=== PATIENT | male | born 1960 | race Caucasian/White ===

== ENCOUNTER 2017-07-22 13:24 | Inpatient (IN) | payer OTHER ==
[2017-07-22 13:28] VITALS: BMI 43.0
--- NOTE | 2017-07-22 13:28 | PDOC ---
History of Present Illness - General Chief Complaint: Pain Stated Complaint: LEG PAIN Time Seen by Provider: 07/22/17 13:26 - History of Present Illness Initial Comments: 07/22/17 13:31 Mr. Miller is a 56 yo male with a significant past medical history of hemorrhagic stroke in 2010 who presents to the emergency department by EMS complaining of pain in his Left hip/leg since Tuesday. He reports that he tripped over his cane on Tuesday while standing and believes that he fell on his left side. He was quickly helped up he reports but woke up with pain Tuesday. He says the pain is worse when he moves and at rest he feels no pain. The patient denies chest pain, shortness of breath, headache and dizziness. Denies fever, chills, nausea, vomit, diarrhea and constipation. Denies dysuria, frequency, urgency and hematuria. Allergies: NKDA Past surgical history: Craniotomy after stroke previously mentioned Past History - Past Medical History Allergies/Adverse Reactions: Allergies Allergy/AdvReac Type Severity Reaction Status Date / Time No Known Allergies Allergy Verified 07/22/17 13:28 Home Medications: Ambulatory Orders Amlodipine Besylate 10 mg PO DAILY 07/22/17 Furosemide [Lasix] 20 mg PO DAILY 07/22/17 Losartan Potassium 100 mg PO DAILY 07/22/17 Review of Systems - Review of Systems Comments:: 07/22/17 13:31 GENERAL/CONSTITUTIONAL: No fever or chills. No weakness. HEAD, EYES, EARS, NOSE AND THROAT: No change in vision. No ear pain or discharge. No sore throat. CARDIOVASCULAR: No chest pain or shortness of breath RESPIRATORY: No cough, wheezing, or hemoptysis. GASTROINTESTINAL: No nausea, vomiting, diarrhea or constipation. GENITOURINARY: No dysuria, frequency, or change in urination. MUSCULOSKELETAL: +Pain to top of left leg reported. SKIN: No rash NEUROLOGIC: No headache, vertigo, loss of consciousness, or change in strength/ sensation. ENDOCRINE: No increased thirst. No abnormal weight change HEMATOLOGIC/LYMPHATIC: No anemia, easy bleeding, or history of blood clots. ALLERGIC/IMMUNOLOGIC: No hives or skin allergy. *Physical Exam - Physical Exam Comments: 07/22/17 13:31 GENERAL: Awake, alert, and fully oriented, in no acute distress HEAD: No signs of trauma, normocephalic, atraumatic EYES: PERRLA, EOMI, sclera anicteric, conjunctiva clear ENT: Auricles normal inspection, hearing grossly normal, nares patent, oropharynx clear without exudates. Moist mucosa NECK: Normal ROM, supple, no lymphadenopathy, JVD, or masses LUNGS: No distress, speaks full sentences, clear to auscultation bilaterally HEART: Regular rate and rhythm, normal S1 and S2, no murmurs, rubs or gallops, peripheral pulses normal and equal bilaterally. ABDOMEN: Soft, nontender, normoactive bowel sounds. No guarding, no rebound. No masses EXTREMITIES: +Patient localizes pain to intertrochanteric fold on LLE; pain only with deep palpation or movement of leg. Normal inspection, Normal range of motion, no edema. No clubbing or cyanosis. Strength and sensation intact to reported baseline following stroke. NEUROLOGICAL: Cranial nerves II through XII grossly intact. Normal speech, normal gait, no focal sensorimotor deficits SKIN: Warm, Dry, normal turgor, no rashes or lesions noted. 07/22/17 15:18 ED Treatment Course - LABORATORY CBC & Chemistry Diagram: 07/22/17 16:00 Medical Decision Making - Medical Decision Making 07/22/17 15:17 Patient reports with LLE pain after fall, no change in strength or sensation from baseline of decreased strength/sensation on left side of body. Hip/Pelvis Left ordered for evaluation. 07/22/17 17:05 Hip/Pelvis unable to rule-out acute non-displaced fracture. Patient unable to ambulate at usual baseline, Head and Pelvis CT ordered for further evaluation. 07/22/17 19:02 Patient signed out to Dr. Emery for further evaluation.
--- NOTE | 2017-07-22 14:01 | PDOC ---
Attending Attestation - HPI HPI: 07/22/17 15:40 The patient is a 56 year old male with a significant PMH of hemorrhagic stroke ( 2010) who presents to the emergency department by EMS with 4 days of left leg/ hip pain s/p fall. Patient normally walks with a cane and tripped over it. Patient has been bed bound since the fall, reports being able to stand but unable to walk. - Physicial Exam PE: 07/22/17 15:57 Vitals: Triage Vital signs reviewed General Appearance: no acute distress, well nourished well developed, Extremities: (+) Left hip tender to palpation. Full range of motion to all extremities, no cyanosis, clubbing, or edema Neuro: AOX3; Cranial Nerves 2-12 grossly c intact, Strength intact to all extremities, Sensation intact to all extremities. - Medical Decision Making 07/22/17 16:03 Plan: Morphine for pain control. EKG Lab: CMP, BMP, Type & Screen Radiology: Pelvic CT. Chest, Hip & Pelvis X-rays. <Felice Gamino - Last Filed: 07/22/17 16:18> - Resident Resident Name: Floyd Wan - ED Attending Attestation I have performed the following: I have examined & evaluated the patient, The case was reviewed & discussed with the resident, I agree w/resident's findings & plan, Exceptions are as noted - Medical Decision Making 07/22/17 17:11 Mechanical fall on Tuesday. Status post pain medication patient still unable to ambulate on left leg. Will observe for pain medication as well as CT head CT pelvis to rule out nondisplaced fracture and further management of pain and inability to walk <Abiel Patel - Last Filed: 07/22/17 17:11>
[2017-07-22] MEDS ORDERED: morphine CARPU-JECT 4 MG/1 ML DISP.SYRIN IVPUSH ONE (15:36)
[2017-07-22] MEDS ORDERED: morphine CARPU-JECT 2 MG/1 ML DISP.SYRIN ONE (15:58)
[2017-07-22 18:32] LABS: ALBUMIN 3.8 g/dl (3.4-5.0); ALK PHOS 79 U/L (45-117); ANION GAP 7 (8-16); BILIRUBIN,TOTAL 0.9 mg/dL (0.2-1.0); CALCIUM 9.1 mg/dL (8.5-10.1); CO2 30 mmol/L (21-32); CREATININE 1.5 mg/dL (0.7-1.3); GLUCOSE,RANDOM 94 mg/dL (74-106); SGOT/AST 28 U/L (15-37); SGPT/ALT 26 U/L (12-78); TOT PROT 7.4 g/dl (6.4-8.2)
[2017-07-22 20:27] LABS: BASOPHIL 0.9 % (0-2.0); EOSINOPHIL 0.4 % (0-4.5); MCH 31.8 pg (25.7-33.7); MCHC 33.9 g/dl (32.0-35.9); MEAN PLT VOLUME 9.4 fl (7.5-11.1); PLATELET COUNT 224 K/MM3 (134-434); RDW 14.4 % (11.9-15.9); WHITE BLOOD COUNT 7.6 K/mm3 (4.0-10.0)
[2017-07-22 20:29] LABS: INR 1.58 (0.82-1.09); PROTHROMBIN TIME (PATIENT) 17.8 SEC (9.98-11.88)
[2017-07-22] MEDS ORDERED: ONDANSETRON 4 MG/2 ML VIAL IVPUSH PRN (21:51)
[2017-07-22] MEDS ORDERED: SODIUM CHLORIDE 1,000 ML IV STA (21:51)
[2017-07-22] MEDS: SODIUM CHLORIDE 1,000 ML IV SCH (23:45)
[2017-07-23] MEDS ORDERED: ENOXAPARIN SQ ONE (03:15)
[2017-07-23] MEDS ORDERED: ENOXAPARIN NA (PORCINE) 100 MG/1 ML DISP.SYRIN SQ ONE ×2 (03:15→15:45)
[2017-07-23] MEDS ORDERED: ENOXAPARIN NA (PORCINE) 30 MG/0.3 ML DISP.SYRIN SQ ONE (03:15)
[2017-07-23] MEDS: SODIUM CHLORIDE 1,000 ML IV SCH ×2 (06:02→22:33)
[2017-07-23 07:34] LABS: BASOPHIL 0.3 % (0-2.0); MCH 31.3 pg (25.7-33.7); MCHC 33.5 g/dl (32.0-35.9); MEAN CELL VOLUME 93.5 fl (80-96); MEAN PLT VOLUME 9.2 fl (7.5-11.1); PLATELET COUNT 182 K/MM3 (134-434); RDW 14.2 % (11.9-15.9); WHITE BLOOD COUNT 6.4 K/mm3 (4.0-10.0)
[2017-07-23 08:08] LABS: ANION GAP 9 (8-16); CALCIUM 8.2 mg/dL (8.5-10.1); CO2 25 mmol/L (21-32); CREATININE 1.1 mg/dL (0.7-1.3); GLUCOSE,RANDOM 78 mg/dL (74-106)
[2017-07-23] MEDS ORDERED: PATIENT'S OWN MEDICATION (NON-FORMULARY) (Losartan Potassium [Losartan Potassium] 100 MG) PO SCH (10:00)
[2017-07-23] MEDS ORDERED: ENOXAPARIN NA (PORCINE) 40 MG/0.4 ML DISP.SYRIN SQ SCH (10:00)
[2017-07-23] MEDS: LOSARTAN POTASSIUM 50 MG TABLET (FP) PO SCH (10:13)
[2017-07-23] MEDS: FUROSEMIDE 20 MG TABLET (FP) PO SCH (10:13)
[2017-07-23] MEDS: amLODIPine BESYLATE 10 MG TABLET (FP) PO SCH (10:14)
[2017-07-23] MEDS: HYDROmorphone HCL CARPU-JECT 1 MG/1 ML DISP.SYRIN IVPB PRN ×3 (10:14→22:33)
--- NOTE | 2017-07-23 12:26 | HP ---
Admitting History and Physical - Primary Care Physician PCP: Juan Kwon - Admission Chief Complaint: Left groin Pain History of Present Illness: 56 yrs old man H/O Morbid Obesity BMI > 40, HTN, Hemorrhagic stroke 2011 s/p Craniotomy, preoperative Left calf DVT s/p IVC filter at [facility], on Coumadin last Coumadin was subtherapeutic 3 wks ago cont on same dose, yesterday present with c/o Left groin and Hip pain after sustaining a mechanical fall on Tuesday, patient walks with a cane on Tuesday tripped on cane while walking landed on Left Hip , next day morning developed worsening pain around Left groin and Hip joint, coolant walk much stayed at home but pain persisted , yesterday felt worsening pain came to Ed for evaluation, patient denies any head, neck, or intra abdominal trauma, no c/o chest pain, SOB palpitation, no H/O LOC or syncope symptoms, patient came to Ed for evaluation, extensive imaging including, CT head, CT Left Hip, CXR and , Neck X ray reported normal, patient was having difficulty in walking so admitted for pain control, LE Doppler Showed Left CFV thrombosis INR sub therapeutic so bridged with Lovenox, today no c/o chest pain, abd or SOB, still c/o Left Hip Pain. - Smoking History Smoking history: Former smoker Have you smoked in the past 12 months: No - Alcohol/Substance Use Hx Alcohol Use: No Home Medications - Allergies Allergies/Adverse Reactions: Allergies Allergy/AdvReac Type Severity Reaction Status Date / Time No Known Allergies Allergy Verified 07/22/17 13:28 - Home Medications Home Medications: Ambulatory Orders Amlodipine Besylate 10 mg PO DAILY 07/22/17 Furosemide [Lasix] 20 mg PO DAILY 07/22/17 Losartan Potassium 100 mg PO DAILY 07/22/17 Metoprolol Tartrate 100 mg PO BID 07/22/17 Pravastatin Sodium 40 mg PO HS 07/22/17 Warfarin Na [Coumadin] 4 mg PO 07/22/17 Warfarin Sodium 2 mg PO 07/22/17 Family Disease History - Family Disease History Family Disease History: Heart Disease: Father, Mother Review of Systems - Review of Systems Constitutional: reports: No Symptoms. denies: Diaphoresis, Fever, Lethargy HENT: denies: No Symptoms Neck: reports: No Symptoms Cardiovascular: denies: Chest Pain, Edema, Palpitations Respiratory: denies: Cough, SOB Gastrointestinal: reports: No Symptoms. denies: Abdominal Pain, Bloating Musculoskeletal: reports: No Symptoms (Left Groin Pian), Other. denies: Back Pain Neurological: reports: No Symptoms Endocrine: reports: Excessive Sweating, Flushing Hematology/Lymphatic: denies: Easily Bruised Psychiatric: reports: No Symptoms Pain Intensity: 6 Physical Examination Vital Signs: Vital Signs Temperature 98.5 F 07/23/17 09:36 Pulse Rate 75 07/23/17 09:36 Respiratory Rate 20 07/23/17 09:36 Blood Pressure 116/71 07/23/17 09:36 O2 Sat by Pulse Oximetry (%) 98 07/23/17 09:00 Middle aged pleasant man not in acute Distress HEENT: mm moist no anemia, PERRLA NECK: No JVD No Bruit CHEST: CTA B/L CVS: S1S2 R ABD; obese non tender Bs + EXT: Left Trace edema, tenderness Left Knee and groin and Left Hip movement are pain full OTM CONSULTANT: Aox3 at base line Let upper extremity weakness +++, minimal Left LE weakness Labs: CBC, BMP 07/23/17 06:00 07/23/17 06:00 Imaging - Results Chest X-ray: Report Reviewed (Normal) Cat Scan: Image Reviewed (Head; No acute changes) Ultrasound: Report Reviewed (Le Doppler shows Left CFV DVT) EKG: Report Reviewed (NSR ano acute St T changes) Problem List - Problems (1) Acute deep vein thrombosis (DVT) of left lower extremity Assessment/Plan: Patient is a known case of Left calf DVT in 2010 after craniotomy s/p IVC filter on Life long AC present with Left hi trauma and pain with decrease mobility, imaging shows no fracture , LE Doppler shows Left CFV thrombosis INR subtherapeutic will bridge with Lovenox, considering proximal DVT F/U abd ultrasound to evaluate IVC for possible thrombus, will consider vascular consult , Hold coumadin. Pending abd ultrasound and vascular consult input. Code(s): I82.402 - ACUTE EMBOLISM AND THOMBOS UNSP DEEP VEINS OF L LOW EXTREM Qualifiers: Affected thrombotic vein of extremity: femoral Qualified Code(s): I82.412 - Acute embolism and thrombosis of left femoral vein; I82.412 - Acute embolism and thrombosis of left femoral vein; I82.412 - Acute embolism and thrombosis of left femoral vein; I82.412 - Acute embolism and thrombosis of left femoral vein (2) HTN (hypertension) Assessment/Plan: Well controlled cont Home Medications. Code(s): I10 - ESSENTIAL (PRIMARY) HYPERTENSION (3) CKD stage G3b/A3, GFR 30-44 and albumin creatinine ratio >300 mg/g Assessment/Plan: No base line available cont IV Hyfdration F/UBMP in am Code(s): N18.3 - CHRONIC KIDNEY DISEASE, STAGE 3 (MODERATE) (4) Hypercholesteremia Assessment/Plan: Cont Statin Code(s): E78.00 - PURE HYPERCHOLESTEROLEMIA, UNSPECIFIED (5) Left hip pain Assessment/Plan: After trauma, pelvic CT shows no fracture will cont pain control, PT evaluation if pain persists will consider ortho consult. Code(s): M25.552 - PAIN IN LEFT HIP
--- NOTE | 2017-07-23 13:06 | EKG ---
Test Reason : Blood Pressure : / mmHG Vent. Rate : 057 BPM Atrial Rate : 057 BPM P-R Int : 178 ms QRS Dur : 092 ms QT Int : 452 ms P-R-T Axes : 018 029 027 degrees QTc Int : 439 ms SINUS BRADYCARDIA WITH SINUS ARRHYTHMIA OTHERWISE NORMAL ECG WHEN COMPARED WITH ECG OF 03-FEB-2011 00:38, VENT. RATE HAS DECREASED BY 44 BPM T WAVE AMPLITUDE HAS DECREASED IN ANTERIOR LEADS QT HAS SHORTENED CLINICAL CORRELATION IS RECOMMENDED Confirmed by RIGOBERTO FITZGERALD MD ([id number]) on 07/23/2017 1:06:10 PM Referred By: Confirmed By:RIGOBERTO FITZGERALD MD
[2017-07-23] MEDS: WARFARIN NA 2 MG TABLET (UD) PO SCH (19:01)
[2017-07-23] MEDS ORDERED: ENOXAPARIN NA (PORCINE) 120 MG/0.8 ML DISP.SYRIN SQ SCH (22:00)
[2017-07-24 08:43] LABS: INR 1.53 (0.82-1.09); PROTHROMBIN TIME (PATIENT) 17.3 SEC (9.98-11.88)
[2017-07-24] MEDS ORDERED: ENOXAPARIN NA (PORCINE) 30 MG/0.3 ML DISP.SYRIN SQ ONE ×2 (10:54→22:19)
[2017-07-24] MEDS ORDERED: ENOXAPARIN NA (PORCINE) 100 MG/1 ML DISP.SYRIN SQ ONE ×2 (10:54→22:19)
[2017-07-24] MEDS: LOSARTAN POTASSIUM 50 MG TABLET (FP) PO SCH (10:57)
[2017-07-24] MEDS: ENOXAPARIN SQ SCH ×2 (10:57→22:56)
[2017-07-24] MEDS: amLODIPine BESYLATE 10 MG TABLET (FP) PO SCH (10:58)
[2017-07-24] MEDS: FUROSEMIDE 20 MG TABLET (FP) PO SCH (10:58)
[2017-07-24] MEDS: HYDROmorphone HCL CARPU-JECT 1 MG/1 ML DISP.SYRIN IVPB PRN (11:01)
[2017-07-24] MEDS: SODIUM CHLORIDE 1,000 ML IV SCH (11:06)
--- NOTE | 2017-07-24 17:52 | PN ---
Progress Note, Physician Chief Complaint: Still c/o Left LE Pain History of Present Illness: 56 yrs old man wiyth H/o HTN, Obesity, dyslipedemia, H/O hemmorhagic stroke s/p Craniotomy and DCT s/p IVC filter present with Left groin pain after a mechanical fall LE Doppler shows Left CFV DVT , CT Pelvis -ve for fracture. - Current Medication List Current Medications: Active Medications Amlodipine Besylate (Norvasc -) 10 mg PO DAILY [facility] Last Admin: 07/24/17 10:58 Dose: 10 mg Enoxaparin Sodium 100 mg/ (Enoxaparin Sodium 25 mg) 125 mg SQ BID [facility] Last Admin: 07/24/17 10:57 Dose: 125 mg Furosemide (Lasix -) 20 mg PO DAILY [facility] Last Admin: 07/24/17 10:58 Dose: 20 mg Hydromorphone HCl (Dilaudid Injection -) 1 mg IVPB Q6H PRN PRN Reason: PAIN Last Admin: 07/24/17 11:01 Dose: 1 mg Sodium Chloride (Normal Saline -) 1,000 mls @ 75 mls/hr IV ASDIR [facility] Last Admin: 07/24/17 11:06 Dose: 75 mls/hr Losartan Potassium (Cozaar -) 100 mg PO DAILY [facility] Last Admin: 07/24/17 10:57 Dose: 100 mg Ondansetron HCl (Zofran Injection) 4 mg IVPUSH Q6H PRN PRN Reason: NAUSEA Warfarin Sodium (Coumadin -) 4 mg PO DAILY@1800 [facility] Last Admin: 07/23/17 19:01 Dose: 4 mg - Objective Vital Signs: Vital Signs Temperature 98.2 F 07/24/17 17:28 Pulse Rate 74 07/24/17 17:28 Respiratory Rate 20 07/24/17 17:28 Blood Pressure 134/82 07/24/17 17:28 O2 Sat by Pulse Oximetry (%) 96 07/24/17 09:00 Middle aged pleasant man not in acute Distress HEENT: mm moist no anemia, PERRLA NECK: No JVD No Bruit CHEST: CTA B/L CVS: S1S2 R ABD; obese non tender Bs + EXT: Left Trace edema, tenderness Left Knee and groin and Left Hip movement are pain full FASHION STYLIST: Aox3 at base line Let upper extremity weakness +++, minimal Left LE weakness Labs: CBC, BMP 07/23/17 06:00 07/23/17 06:00 INR, PTT INR 1.53 (0.82-1.09) H 07/24/17 06:00 - ....Imaging Ultrasound: Report Reviewed (NO IVC Clot) Problem List - Problems (1) Acute deep vein thrombosis (DVT) of left lower extremity Assessment/Plan: Patient is a known case of Left calf DVT in 2010 after craniotomy s/p IVC filter on Life long AC present with Left hi trauma and pain with decrease mobility, imaging shows no fracture , LE Doppler shows Left CFV thrombosis INR subtherapeutic will bridge with Lovenox, considering proximal DVT F/U abd ultrasound to evaluate IVC for possible thrombus, will consider vascular consult , Hold coumadin. Pending abd ultrasound show no IVC clot and vascular consult input. Code(s): I82.402 - ACUTE EMBOLISM AND THOMBOS UNSP DEEP VEINS OF L LOW EXTREM Qualifiers: Affected thrombotic vein of extremity: femoral Qualified Code(s): I82.412 - Acute embolism and thrombosis of left femoral vein; I82.412 - Acute embolism and thrombosis of left femoral vein; I82.412 - Acute embolism and thrombosis of left femoral vein; I82.412 - Acute embolism and thrombosis of left femoral vein (2) HTN (hypertension) Assessment/Plan: Well controlled cont Home Medications. Code(s): I10 - ESSENTIAL (PRIMARY) HYPERTENSION (3) CKD stage G3b/A3, GFR 30-44 and albumin creatinine ratio >300 mg/g Assessment/Plan: No base line available cont IV Hyfdration F/UBMP in am Code(s): N18.3 - CHRONIC KIDNEY DISEASE, STAGE 3 (MODERATE) (4) Hypercholesteremia Assessment/Plan: Cont Statin Code(s): E78.00 - PURE HYPERCHOLESTEROLEMIA, UNSPECIFIED (5) Left hip pain Assessment/Plan: After trauma, pelvic CT shows no fracture will cont pain control, PT evaluation if pain persists will consider ortho consult. Code(s): M25.552 - PAIN IN LEFT HIP (6) Morbid obesity with BMI of 40.0-44.9, adult Assessment/Plan: Nutrition consult as out patient Code(s): E66.01 - MORBID (SEVERE) OBESITY DUE TO EXCESS CALORIES Z68.41 - BODY MASS INDEX (BMI) 40.0-44.9, ADULT
[2017-07-24] MEDS: WARFARIN NA 2 MG TABLET (UD) PO SCH (17:58)
[2017-07-25] MEDS: SODIUM CHLORIDE 1,000 ML IV SCH (00:05)
[2017-07-25 07:10] LABS: BASOPHIL 0.4 % (0-2.0); EOSINOPHIL 1.4 % (0-4.5); MCH 31.2 pg (25.7-33.7); MCHC 33.9 g/dl (32.0-35.9); MEAN PLT VOLUME 8.8 fl (7.5-11.1); NEUTROPHILS 65.3 % (42.8-82.8); PLATELET COUNT 177 K/MM3 (134-434); RDW 14.2 % (11.9-15.9); WHITE BLOOD COUNT 6.1 K/mm3 (4.0-10.0)
[2017-07-25 07:25] LABS: INR 1.65 (0.82-1.09); PROTHROMBIN TIME (PATIENT) 18.7 SEC (9.98-11.88)
[2017-07-25] MEDS ORDERED: ENOXAPARIN NA (PORCINE) 100 MG/1 ML DISP.SYRIN SQ ONE ×2 (10:09→20:36)
[2017-07-25] MEDS ORDERED: ENOXAPARIN NA (PORCINE) 30 MG/0.3 ML DISP.SYRIN SQ ONE ×2 (10:09→20:36)
[2017-07-25] MEDS: LOSARTAN POTASSIUM 50 MG TABLET (FP) PO SCH (10:13)
[2017-07-25] MEDS: amLODIPine BESYLATE 10 MG TABLET (FP) PO SCH (10:14)
[2017-07-25] MEDS: FUROSEMIDE 20 MG TABLET (FP) PO SCH (10:14)
[2017-07-25] MEDS: ENOXAPARIN SQ SCH ×2 (10:14→21:18)
--- NOTE | 2017-07-25 11:48 | PN ---
Progress Note, Physician Chief Complaint: Mr Miller says he is doing well. Says the pain in his leg is better controlled. No cp, sob, n/v. - Current Medication List Current Medications: Active Medications Amlodipine Besylate (Norvasc -) 10 mg PO DAILY [facility] Last Admin: 07/25/17 10:14 Dose: 10 mg Enoxaparin Sodium 100 mg/ (Enoxaparin Sodium 25 mg) 125 mg SQ BID [facility] Last Admin: 07/25/17 10:14 Dose: 125 mg Furosemide (Lasix -) 20 mg PO DAILY [facility] Last Admin: 07/25/17 10:14 Dose: 20 mg Hydromorphone HCl (Dilaudid Injection -) 1 mg IVPB Q6H PRN PRN Reason: PAIN Last Admin: 07/24/17 11:01 Dose: 1 mg Sodium Chloride (Normal Saline -) 1,000 mls @ 75 mls/hr IV ASDIR [facility] Last Admin: 07/25/17 00:05 Dose: 75 mls/hr Losartan Potassium (Cozaar -) 100 mg PO DAILY [facility] Last Admin: 07/25/17 10:13 Dose: 100 mg Ondansetron HCl (Zofran Injection) 4 mg IVPUSH Q6H PRN PRN Reason: NAUSEA Warfarin Sodium (Coumadin -) 4 mg PO DAILY@1800 [facility] Last Admin: 07/24/17 17:58 Dose: 4 mg - Objective Vital Signs: Vital Signs Temperature 36.4 C L 07/25/17 09:00 Pulse Rate 71 07/25/17 09:00 Respiratory Rate 20 07/25/17 09:00 Blood Pressure 135/82 07/25/17 09:00 O2 Sat by Pulse Oximetry (%) 97 07/25/17 09:00 Constitutional: Yes: No Distress, Calm, Obese Cardiovascular: Yes: Regular Rate and Rhythm. No: Gallop, Murmur, Rub Respiratory: Yes: Regular, CTA Bilaterally. No: Rales, Rhonchi, Wheezes Gastrointestinal: Yes: Normal Bowel Sounds, Soft. No: Distention, Tenderness Extremities: Yes: WNL Edema: Yes Edema: LLE: Trace Labs: CBC, BMP 07/25/17 06:00 INR, PTT INR 1.65 (0.82-1.09) H 07/25/17 06:00 Problem List - Problems (1) Acute deep vein thrombosis (DVT) of left lower extremity Assessment/Plan: -patient with recent subtherapeutic INR as an outpatient -developed DVT -continue lovenox bridge -continue coumadin 4mg daily -if does not improve, increase to 6mg -PT consulted Code(s): I82.402 - ACUTE EMBOLISM AND THOMBOS UNSP DEEP VEINS OF L LOW EXTREM Qualifiers: Affected thrombotic vein of extremity: femoral Qualified Code(s): I82.412 - Acute embolism and thrombosis of left femoral vein; I82.412 - Acute embolism and thrombosis of left femoral vein; I82.412 - Acute embolism and thrombosis of left femoral vein; I82.412 - Acute embolism and thrombosis of left femoral vein (2) HTN (hypertension) Assessment/Plan: -continue lasix, norvasc, and cozaar -well controlled Code(s): I10 - ESSENTIAL (PRIMARY) HYPERTENSION (3) Left hip pain Assessment/Plan: -improved control -PT consulted -will change narcotics to oxycodone Code(s): M25.552 - PAIN IN LEFT HIP (4) Morbid obesity with BMI of 40.0-44.9, adult Assessment/Plan: -outpatient weight loss program Code(s): E66.01 - MORBID (SEVERE) OBESITY DUE TO EXCESS CALORIES Z68.41 - BODY MASS INDEX (BMI) 40.0-44.9, ADULT
[2017-07-25] MEDS: WARFARIN NA 2 MG TABLET (UD) PO SCH (17:22)
[2017-07-25] MEDS ORDERED: HYDROmorphone HCL CARPU-JECT 1 MG/1 ML DISP.SYRIN IVPUSH PRN (17:47)
[2017-07-25] MEDS: HYDROmorphone HCL CARPU-JECT 1 MG/1 ML DISP.SYRIN IVPB PRN (18:10)
--- NOTE | 2017-07-25 19:33 | CONSULT ---
Consult - History of Present Illness History of Present Illness: 56 year old man with history of left leg DVT and PE 6 years ago at the time of a stroke and craniotomy. He had an IVC filter placed and has been on Coumadin ever since. He states he has had chronic swelling in the leg which has been getting better. He has had venous imaging repeated at another institution. He is admitted with left hip pain following a fall. A venous Duplex shows occlusion of the left femoral vein. 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 Cardio/Vascular: Yes: HTN, Hyperlipdemia - Past Surgical History Past Surgical History: Yes: Craniotomy - Alcohol/Substance Use Hx Alcohol Use: No - Smoking History Smoking history: Former smoker Have you smoked in the past 12 months: No Home Medications - Allergies Allergies/Adverse Reactions: Allergies Allergy/AdvReac Type Severity Reaction Status Date / Time No Known Allergies Allergy Verified 07/22/17 13:28 - Home Medications Home Medications: Ambulatory Orders Amlodipine Besylate 10 mg PO DAILY 07/22/17 Furosemide [Lasix] 20 mg PO DAILY 07/22/17 Losartan Potassium 100 mg PO DAILY 07/22/17 Metoprolol Tartrate 100 mg PO BID 07/22/17 Pravastatin Sodium 40 mg PO HS 07/22/17 Warfarin Na [Coumadin] 4 mg PO 07/22/17 Warfarin Sodium 2 mg PO 07/22/17 Family Disease History - Family Disease History Family Disease History: Heart Disease: Father, Mother Physical Exam Vital Signs: Vital Signs Temperature 98.4 F 07/25/17 18:43 Pulse Rate 73 07/25/17 18:43 Respiratory Rate 18 07/25/17 18:43 Blood Pressure 137/85 07/25/17 18:43 O2 Sat by Pulse Oximetry (%) 97 07/25/17 09:00 Constitutional: Yes: Obese Cardiovascular: Yes: Regular Rate and Rhythm Respiratory: Yes: Regular Gastrointestinal: Yes: Soft Edema: Yes Edema: LLE: 1+, RLE: 1+ Integumentary: Yes: Venous Stasis Changes (left anterior calf) Neurological: Yes: Alert, Oriented Labs: CBC, BMP 07/25/17 06:00 Imaging - Results Ultrasound: Image Reviewed Problem List - Problems (1) Deep vein thrombosis (DVT) of femoral vein of left lower extremity Assessment/Plan: Duplex findings may represent chronic thrombus in the left femoral vein from prior DVT. If old Duplex reports are available it would be helpful to review. In any case he should have his Coumadin dose adjusted to 2-3 x normal INR. No additional vascular intervention needed at this time. Code(s): I82.412 - ACUTE EMBOLISM AND THROMBOSIS OF LEFT FEMORAL VEIN Qualifiers: Chronicity: unspecified Qualified Code(s): I82.412 - Acute embolism and thrombosis of left femoral vein; I82.412 - Acute embolism and thrombosis of left femoral vein; I82.412 - Acute embolism and thrombosis of left femoral vein ; I82.412 - Acute embolism and thrombosis of left femoral vein (2) Stasis dermatitis of left lower extremity due to peripheral venous hypertension Assessment/Plan: Leg elevation and support hose recommended to prevent progression of stasis changes. Code(s): I87.322 - CHRONIC VENOUS HYPERTENSION W INFLAMMATION OF L LOW EXTREM
[2017-07-26] MEDS: SODIUM CHLORIDE 1,000 ML IV SCH (03:00)
[2017-07-26] MEDS: HYDROmorphone HCL CARPU-JECT 1 MG/1 ML DISP.SYRIN IVPB PRN (06:26)
[2017-07-26 07:33] LABS: BASOPHIL 0.4 % (0-2.0); EOSINOPHIL 1.5 % (0-4.5); MCH 31.5 pg (25.7-33.7); MCHC 34.4 g/dl (32.0-35.9); MEAN CELL VOLUME 91.5 fl (80-96); MEAN PLT VOLUME 8.9 fl (7.5-11.1); NEUTROPHILS 68.6 % (42.8-82.8); PLATELET COUNT 181 K/MM3 (134-434); WHITE BLOOD COUNT 6.9 K/mm3 (4.0-10.0)
[2017-07-26 07:40] LABS: INR 1.65 (0.82-1.09); PROTHROMBIN TIME (PATIENT) 18.7 SEC (9.98-11.88)
[2017-07-26 07:56] LABS: ANION GAP 11 (8-16); CALCIUM 8.2 mg/dL (8.5-10.1); CO2 23 mmol/L (21-32); CREATININE 0.9 mg/dL (0.7-1.3); GLUCOSE,RANDOM 81 mg/dL (74-106); MAGNESIUM 1.9 mg/dL (1.8-2.4); PHOSPHOROUS 2.8 mg/dL (2.5-4.9)
--- NOTE | 2017-07-26 09:21 | PN ---
Progress Note (short form) - Note Progress Note: Patient seen and examined. Chart reviewed. Currently supine in bed with ongoing complaint of left hip area pain requiring iv narcotic Rx. Denies new chest discomfort or PADRON. Dr Kinsey's consult reviewed and appreciated. Had previously been seen by Dr Barrera at the [facility] who suggested we continue Warfarin indefinitely due to the chronic swelling of the LLE. Medications, lab tests, radiologic studies and progress notes reviewed. Increase activity with physical therapy. Constipated. Selected Entries 07/25/17 07/26/17 20:38 06:00 Temperature 98.3 F Pulse Rate 62 Respiratory 20 Rate Blood Pressure 126/90 O2 Sat by Pulse 97 Oximetry (%) Oxygen Delivery Room Air Method Laboratory Tests 07/24/17 07/26/17 07/26/17 06:00 06:30 06:30 WBC 6.9 Hgb 11.5 L Hct 33.3 L Plt Count 181 INR 1.65 H Sodium Potassium Chloride Carbon Dioxide BUN Creatinine Random Glucose Calcium Phosphorus Magnesium TSH 0.16 L 07/26/17 06:30 WBC Hgb Hct Plt Count INR Sodium 141 Potassium 3.6 Chloride 107 Carbon Dioxide 23 BUN 10 D Creatinine 0.9 Random Glucose 81 Calcium 8.2 L Phosphorus 2.8 Magnesium 1.9 TSH Chest Clear Cor RRR Abd Obese Non-tender Ext Swelling and stasis changes LLE Stockings in place Neuro Chronic Left hemiplegia unchanged Assessment and Plan DVT Chronic Increase Warfarin dose Patient is not compliant with f/u of INR Is there a role for NOACs in this setting? H/O CVA with craniotomy HTN Stable Low TSH Check Free T3 Free T4 K+ 3.6 Replete Stasis changes Chronic Stable Improved overall Left Hip Pain PT assessment Switch to oral Rx Constipation Miralax Colace Morbid Obesity Stable Continue current Rx Increase activity Discharge planning
[2017-07-26] MEDS ORDERED: WARFARIN NA 2 MG TABLET (UD) PO ONE (10:00)
[2017-07-26] MEDS ORDERED: ENOXAPARIN NA (PORCINE) 30 MG/0.3 ML DISP.SYRIN SQ ONE ×2 (10:04→21:03)
[2017-07-26] MEDS ORDERED: ENOXAPARIN NA (PORCINE) 100 MG/1 ML DISP.SYRIN SQ ONE ×2 (10:04→21:03)
[2017-07-26] MEDS: POTASSIUM CHLORIDE TABS 20 MEQ TABLET.ER (FP) PO SCH (10:07)
[2017-07-26] MEDS: DOCUSATE SODIUM 100 MG CAPSULE (FP) PO SCH (10:08)
[2017-07-26] MEDS: oxyCODONE HCL 5 MG TABLET PO PRN (10:08)
[2017-07-26] MEDS: amLODIPine BESYLATE 10 MG TABLET (FP) PO SCH (10:08)
[2017-07-26] MEDS: FUROSEMIDE 20 MG TABLET (FP) PO SCH (10:08)
[2017-07-26] MEDS: POLYETHYLENE GLYCOL 3350 119 GM BTL PO SCH ×2 (10:08→21:24)
[2017-07-26] MEDS: ACETAMINOPHEN 325 MG TABLET (FP) PO PRN (10:09)
[2017-07-26] MEDS: ENOXAPARIN SQ SCH ×2 (10:10→21:22)
[2017-07-26] MEDS: LOSARTAN POTASSIUM 50 MG TABLET (FP) PO SCH (10:12)
[2017-07-27] MEDS: ACETAMINOPHEN 325 MG TABLET (FP) PO PRN ×2 (00:10→09:28)
[2017-07-27] MEDS: oxyCODONE HCL 5 MG TABLET PO PRN ×2 (00:11→09:27)
[2017-07-27 07:44] LABS: INR 1.94 (0.82-1.09); PROTHROMBIN TIME (PATIENT) 21.9 SEC (9.98-11.88)
[2017-07-27 07:50] LABS: BASOPHIL 0.6 % (0-2.0); EOSINOPHIL 2.1 % (0-4.5); MCH 30.8 pg (25.7-33.7); MEAN CELL VOLUME 90.6 fl (80-96); NEUTROPHILS 60.9 % (42.8-82.8); PLATELET COUNT 191 K/MM3 (134-434); RDW 13.9 % (11.9-15.9); WHITE BLOOD COUNT 6.1 K/mm3 (4.0-10.0)
[2017-07-27 07:54] LABS: ALBUMIN 2.9 g/dl (3.4-5.0); CALCIUM 8.2 mg/dL (8.5-10.1)
[2017-07-27 08:00] LABS: ALK PHOS 72 U/L (45-117); ANION GAP 5 (8-16); CO2 27 mmol/L (21-32); GLUCOSE,RANDOM 85 mg/dL (74-106); MAGNESIUM 1.8 mg/dL (1.8-2.4); SGOT/AST 27 U/L (15-37); SGPT/ALT 26 U/L (12-78)
[2017-07-27] MEDS ORDERED: ENOXAPARIN NA (PORCINE) 30 MG/0.3 ML DISP.SYRIN SQ ONE (09:19)
[2017-07-27] MEDS ORDERED: ENOXAPARIN NA (PORCINE) 100 MG/1 ML DISP.SYRIN SQ ONE (09:19)
[2017-07-27] MEDS: ENOXAPARIN SQ SCH (09:25)
[2017-07-27] MEDS: FUROSEMIDE 20 MG TABLET (FP) PO SCH (09:26)
[2017-07-27] MEDS: LOSARTAN POTASSIUM 50 MG TABLET (FP) PO SCH (09:26)
[2017-07-27] MEDS: DOCUSATE SODIUM 100 MG CAPSULE (FP) PO SCH (09:26)
[2017-07-27] MEDS: amLODIPine BESYLATE 10 MG TABLET (FP) PO SCH (09:26)
[2017-07-27] MEDS: POTASSIUM CHLORIDE TABS 20 MEQ TABLET.ER (FP) PO SCH (09:26)
[2017-07-27] MEDS ORDERED: WARFARIN NA 5 MG TABLET (UD) PO ONE (09:29)
--- NOTE | 2017-07-27 09:29 | DS ---
Physical Examination Vital Signs: Vital Signs Temperature 98.1 F 07/27/17 09:10 Pulse Rate 73 07/27/17 09:10 Respiratory Rate 20 07/27/17 09:10 Blood Pressure 130/84 07/27/17 09:10 O2 Sat by Pulse Oximetry (%) 97 07/26/17 20:10 Constitutional: Yes: No Distress, Calm Eyes: No: Sclera Icterus Cardiovascular: Yes: Regular Rate and Rhythm Respiratory: Yes: CTA Bilaterally Gastrointestinal: Yes: Normal Bowel Sounds, Soft, Abdomen, Obese Neurological: Yes: Alert, Oriented, Other (Left hemiparesis) Labs: CBC, BMP 07/27/17 06:00 07/27/17 06:00 Discharge Summary Reason For Visit: FALL Current Active Problems Left hip pain (Acute) Acute deep vein thrombosis (DVT) of left lower extremity (Chronic) CKD stage G3b/A3, GFR 30-44 and albumin creatinine ratio >300 mg/g (Chronic) Deep vein thrombosis (DVT) of femoral vein of left lower extremity (Chronic) HTN (hypertension) (Chronic) Hypercholesteremia (Chronic) Morbid obesity with BMI of 40.0-44.9, adult (Chronic) Stasis dermatitis of left lower extremity due to peripheral venous hypertension (Chronic) Hospital Course: See daily progress notes and problem list Transfer to SNF/Rehab Continue current Rx Monitor INR - Instructions Diet, Activity, Other Instructions: Low Na as tolerated - Home Medications Comprehensive Discharge Medication List: Ambulatory Orders Amlodipine Besylate 10 mg PO DAILY 07/22/17 Furosemide [Lasix] 20 mg PO DAILY 07/22/17 Losartan Potassium 100 mg PO DAILY 07/22/17 Metoprolol Tartrate 100 mg PO BID 07/22/17 Pravastatin Sodium 40 mg PO HS 07/22/17 Warfarin Na [Coumadin -] 4 mg PO 07/22/17 Warfarin Sodium 2 mg PO 07/22/17 Docusate Sodium [Colace -] 200 mg PO DAILY #60 tab 07/27/17 Oxycodone HCl [Roxicodone -] 5 mg PO Q4H PRN #10 tablet MDD 4 07/27/17 Polyethylene Glycol 3350 [Miralax 119 gm Btl -] 17 gm PO DAILY 10 Days 07/27/17 Potassium Chloride [K-Dur -] 20 meq PO DAILY #30 tab 07/27/17
[2017-07-27] MEDS: POLYETHYLENE GLYCOL 3350 119 GM BTL PO SCH (09:38)
[2017-07-27 15:12] VITALS: BP 139/77; PULSE 86; TEMP 99.5
== END 2017-07-27 15:32 | DRG 300 ==
LOC: JER 13:24 → JERBED 21:48 → J7W 23:26 → OBSVTOIN 07-24 18:41
PROVIDERS: ADMIT Internal Medicine; ATTEND Internal Medicine
DX: I82.412 Acute embolism and thrombosis of left femoral vein (principal); Z68.41 Body mass index [BMI] 40.0-44.9, adult; Z86.73 Personal history of transient ischemic attack (TIA), and cerebral infarction without residual deficits; E66.01 Morbid (severe) obesity due to excess calories; Z86.718 Personal history of other venous thrombosis and embolism; Z79.01 Long term (current) use of anticoagulants; E78.00 Pure hypercholesterolemia, unspecified; I12.9 Hypertensive chronic kidney disease with stage 1 through stage 4 chronic kidney disease, or unspecified chronic kidney disease; N18.3 Chronic kidney disease, stage 3 (moderate); I87.322 Chronic venous hypertension (idiopathic) with inflammation of left lower extremity; K59.00 Constipation, unspecified; Z87.891 Personal history of nicotine dependence
CPT/HCPCS: 36415; 70450-TC; 71010-TC; 72192-TC; 73523-TC; 76700-TC; 80048; 80053; 82550; 83735; 84100; 84439; 84443; 84481; 85025; 85610; 86850; 86900; 86901; 93005; 93010; 93970-TC; 97116-GP; 97161-GP; 99283-25; G0378

== ENCOUNTER 2019-01-18 18:16 | Inpatient (IN) | payer OTHER ==
--- NOTE | 2019-01-18 19:02 | PDOC ---
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 Pt states the pain started 4 days ago after he visited and stayed with his mother in the hospital for about a week. He was taking his shoe off and had pain at the MTP of his L foot at the great toe. He has had pain ever since, mainly when he applies pressure or tries to stand. Pain is in the toe of the L foot and the heel of the R foot. The pain has gotten to the point where pt cannot walk or stand. Denies trauma, fevers, chills, abdominal pain, n/ v/d, calf pain, hip pain, knee pain, headache, chest pain, sob, cough. He states that the R ankle appears more swollen than the L but otherwise no new swelling. Has some erythema on the L great toe but states that has been there since he took his shoe off. Drinks a bottle of wine daily. PMD: Rosch PMH: see hpi PSH: craniotomy Meds: Eliquis, metoprolol, atorvastatin, losartan, Lasix Allergies: nkda Social: Drinks 1 bottle of wine/day Past History - Past Medical History Allergies/Adverse Reactions: Allergies Allergy/AdvReac Type Severity Reaction Status Date / Time No Known Allergies Allergy Verified 01/18/19 18:32 Home Medications: Ambulatory Orders Amlodipine Besylate 10 mg PO DAILY 07/22/17 Furosemide [Lasix] 40 mg PO DAILY 07/22/17 Losartan Potassium 100 mg PO DAILY 07/22/17 Metoprolol Tartrate 100 mg PO BID 07/22/17 Pravastatin Sodium 40 mg PO HS 07/22/17 Docusate Sodium [Colace -] 200 mg PO DAILY #60 tab 07/27/17 Polyethylene Glycol 3350 [Miralax 119 gm Btl -] 17 gm PO DAILY 10 Days bottle 07/27/17 oxyCODONE HCL [Roxicodone -] 5 mg PO Q4H PRN #10 tablet MDD 4 07/27/17 Cholecalciferol (Vitamin D3) [Vitamin D3 -] 2,000 unit PO DAILY 08/15/17 Apixaban [Eliquis] 2.5 mg PO BID #1 tablet 08/18/17 Potassium Chloride [K-Dur -] 20 meq PO DAILY tablet.er 08/18/17 predniSONE [Deltasone -] 10 mg PO ASDIR #18 tab 08/18/17 Cyanocobalamin [Vitamin B12 -] 500 mcg PO WEEKLY 01/18/19 CVA: Yes (01/2011, 07/2017 left arm weakness) COPD: No HTN: Yes - Surgical History Neurologic Surgery: Yes (CRANIOTOMY 2010) - Suicide/Smoking/Psychosocial Hx Smoking History: Never smoked Have you smoked in the past 12 months: No Hx Alcohol Use: No Drug/Substance Use Hx: No Substance Use Type: None Hx Substance Use Treatment: No Review of Systems - Review of Systems Constitutional: No: Chills, Fever, Weakness HEENTM: No: Symptoms Reported Respiratory: No: Symptoms reported Cardiac (ROS): No: Symptoms Reported ABD/GI: No: Symptoms Reported : No: Symptoms Reported Musculoskeletal: Yes: See HPI, Gout, Joint Pain. No: Back Pain, Neck Pain Integumentary: Yes: Erythema (around L great toe) Neurological: No: Headache, Numbness, Tingling, Tremors, Weakness *Physical Exam - Physical Exam General Appearance: Yes: Appropriately Dressed, Obese. No: Apparent Distress HEENT: positive: EOMI, BOOGIE, Normal ENT Inspection Neck: positive: Trachea midline, Supple. negative: Lymphadenopathy (R), Lymphadenopathy (L) Respiratory/Chest: positive: Lungs Clear, Normal Breath Sounds. negative: Crackles, Wheezing Cardiovascular: positive: Regular Rhythm, Regular Rate, S1, S2. negative: Edema , JVD, Murmur Vascular Pulses: Carotid (R): 2+, Carotid (L): 2+, Dorsalis-Pedis (R): 1+, Doralis-Pedis (L): 1+ Gastrointestinal/Abdominal: positive: Normal Bowel Sounds, Soft. negative: Tender Musculoskeletal: positive: Other (L toe MTP tenderness, R heel tenderness. L hand contraction from CVA). negative: CVA Tenderness, Vertebral Tenderness Extremity: positive: Pedal Edema (2+ feet and ankles bilterally L>R), Other ( chronic venous stasis changes on LLE). negative: Tender, Calf Tenderness, Erythema Integumentary: positive: Normal Color, Dry, Warm, Other (erythema around L great toe. Not hot. ). 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 Pt states the pain started 4 days ago after he visited and stayed with his mother in the hospital for about a week. He was taking his shoe off and had pain at the MTP of his L foot at the great toe. He has had pain ever since, mainly when he applies pressure or tries to stand. Pain is in the toe of the L foot and the heel of the R foot. The pain has gotten to the point where pt cannot walk or stand. Denies trauma, fevers, chills, abdominal pain, n/ v/d, calf pain, hip pain, knee pain, headache, chest pain, sob, cough. He states that the R ankle appears more swollen than the L but otherwise no new swelling. Has some erythema on the L great toe but states that has been there since he took his shoe off. Drinks a bottle of wine daily. vitals: wnl PE: bilateral pitting edema. L great toe redness with ttp at mtp joint, R heel/ankle tenderness Ddx includes but not limited to infection, gout, dvt, -labs, uric acid -xray, us -indomethacin, steroids labs significant for Laboratory Tests 01/18/19 01/18/19 19:17 19:17 WBC 10.6 H Uric Acid 7.6 H pt feeling better with reduced pain on meds. However unable to put pressure on feet and cannot stand. Pt usually ambulatory with cane but with affected L side from CVA and inability to bear weight on R leg, pt will be admitted *DC/Admit/Observation/Transfer Diagnosis at time of Disposition: Foot pain, left Gout Qualifiers: Gout site: foot Gout etiology: unspecified cause Chronicity: acute Laterality: unspecified laterality Qualified Code(s): M10.9 - Gout, unspecified Ankle pain, right Qualifiers: Chronicity: acute Qualified Code(s): M25.571 - Pain in right ankle and joints of right foot - Discharge Dispostion Condition at time of disposition: Good Decision to Admit order: Yes - Referrals - Patient Instructions - Post Discharge Activity
[2019-01-18] MEDS ORDERED: ACETAMINOPHEN 500 MG TABLET (FP) PO ONE (19:04)
[2019-01-18] MEDS ORDERED: INDOMETHACIN 50 MG CAPSULE PO ONE (19:23)
[2019-01-18 19:32] LABS: BASO % 0.7 % (0-2.0); EOS % 0.2 % (0-4.5); HEMATOCRIT 38.8 % (35.4-49); LYMPH % 11.3 % (8-40); MCH 31.8 pg (25.7-33.7); MCHC 33.4 g/dl (32.0-35.9); MEAN CELL VOLUME 95.2 fl (80-96); MEAN PLT VOLUME 8.7 fl (7.5-11.1); MONO % 9.6 % (3.8-10.2); NEUT % 78.2 % (42.8-82.8); PLATELET COUNT 210 K/MM3 (134-434); RBC 4.08 M/mm3 (4.00-5.60); RDW 13.9 % (11.9-15.9); WHITE BLOOD COUNT 10.6 K/mm3 (4.0-10.0)
[2019-01-18] MEDS ORDERED: ACETAMINOPHEN 325 MG TABLET (FP) ONE (19:42)
[2019-01-18 19:46] LABS: INR 1.57 (0.83-1.09); PROTHROMBIN TIME (PATIENT) 18.6 SEC (9.7-13.0)
[2019-01-18 19:48] LABS: ACTIVATED PTT 42.6 SECONDS (25.2-36.5)
[2019-01-18 20:01] LABS: ALBUMIN 3.8 g/dl (3.4-5.0); ALK PHOS 81 U/L (45-117); ANION GAP 7 MMOL/L (8-16); BILIRUBIN,TOTAL 0.8 mg/dL (0.2-1); BLOOD UREA NITROGEN 20 mg/dL (7-18); CALCIUM 9.3 mg/dL (8.5-10.1); CHLORIDE 102 mmol/L (98-107); CO2 29 mmol/L (21-32); CREATININE 1.3 mg/dL (0.55-1.3); GLUCOSE,RANDOM 105 mg/dL (74-106); MAGNESIUM 1.9 mg/dL (1.8-2.4); POTASSIUM 3.9 mmol/L (3.5-5.1); SGOT/AST 11 U/L (15-37); SGPT/ALT 15 U/L (13-61); SODIUM 138 mmol/L (136-145); TOT PROT 7.4 g/dl (6.4-8.2); URIC ACID 7.6 mg/dL (2.6-7.2)
--- NOTE | 2019-01-18 20:27 | PDOC ---
Documentation entered by Kirsten Briscoe SCRIBE, acting as scribe for Yolanda Rios DO. Yolanda Rios DO: This documentation has been prepared by the Rachna julien Daisy, SCRIBE, under my direction and personally reviewed by me in its entirety. I confirm that the documentation accurately reflects all work, treatment, procedures, and medical decision making performed by me. Attending Attestation - Resident Resident Name: Zarina Stevens - ED Attending Attestation I have performed the following: I have examined & evaluated the patient, The case was reviewed & discussed with the resident, I agree w/resident's findings & plan - HPI HPI: 01/18/19 19:08 The patient is a 58 YOM with a PMH of hemorrhagic CVA s/p craniotomy with L sided deficits, DVT s/p IVC on eliquis, HTN, and HLD who presents to the ED with bilateral foot pain. Patient states he was visiting his mother over the weekend and was sitting on a chair the entire time. He noticed the left leg pain initially followed by right leg pain. Patient is now complaining of increased pain with ambulation. The patient denies chest pain, shortness of breath, headache and dizziness. Denies fever, chills, nausea, vomit, diarrhea and constipation. Denies dysuria, frequency, urgency and hematuria. Allergies: NKA Past surgical history: None reported. Social history: No reported alcohol, drug or cigarette use. PCP: Dr. Hernandez - Physicial Exam PE: 01/18/19 19:14 ADULT PHYSICAL EXAM Constitutional: Awake, alert, oriented. No acute distress. Eyes: PERRL. EOMI. Conjunctivae are not pale. ENT: Mucous membranes are moist and intact. Posterior pharynx without exudates or erythema. Uvula midline. Cardiovascular: Regular rate. Regular rhythm. S1, S2 regular. Distal pulses are 2+ and symmetric. Pulmonary/Chest: No evidence of respiratory distress. Clear to auscultation bilaterally No wheezing, rales or rhonchi. Abdominal: (+) Obese. Soft and non-distended. There is no tenderness. No rebound, guarding or rigidity. No organomegaly. No palpable masses. Good bowel sounds. Musculoskeletal: (+) Contracted left upper extremity 2/2 CVA. (+) chronic venous stasis to the left lower extremity. (+) chronic edema, left greater than right. (+) Left big toe MTP joint is enlarged, hot to touch and tender. (+) Right malleolus is also tender, hot to touch, and erythematous. Skin: Skin is warm and dry. No wounds. No lymphangitis spread. Neurological: Cranial nerves II-XII are grossly intact. Psychiatric: Good eye contact. Normal interaction, affect and behavior. - Medical Decision Making 01/18/19 19:26 a/p: 58yo male with L big toe and R ankle pain x 4 days - started tuesday -hx of dvt, on , will obtain ultrasound since he was in a chair with his mother in the hospital for days -redness to the MTP, suspect gout, also with redness to the R ankle - also suspect gout -no fevers/chills -nontoxic in appearance -chronic LUE contraction from prior hemorrhagic cva -will send labs, will start treatment for gout -will monitor and reassess -pt does admit to drinking a bottle of wine a day 01/18/19 20:27 labs reviewed pending ultrasound and xrays mildly elevated uric acid, suspect gout 01/18/19 21:11 no acute dvt, R popliteal fossa cyst pending xrays 01/18/19 22:08 pt with pain and cannot ambulate will keep in obs for pain control resident discussed with [facility] who accepts pt to service
--- NOTE | 2019-01-18 22:35 | PN ---
Teaching Attending Note Name of Resident: Rory Dash ATTENDING PHYSICIAN STATEMENT I saw and evaluated the patient. I reviewed the resident's note and discussed the case with the resident. I agree with the resident's findings and plan as documented. SUBJECTIVE: Seen and examined; please refer to resident note for further historical information. Briefly, this is a 58 y/o male presenting with gout sx rendering him unable to ambulate. He has existing LLE diminished functionality due to hemorrhagic CVA (s/p craniotomy, remote). The pain did radiate throught LLE and RLE with R-sided pain being worse (likely due to sensory impairment). He notes some swelling of the R-ankle and the L-hallux (which is also associated with some rubar) and was found in the ER to have elevated uric acid level. He is obese and has a poor diet and regularly consumes EtOH (not abuse, though would increase gout risk). He normally ambulates with a cane but is unable to complete his baseline amount of activity so admission was requested. He has seen Dr. Land in the past for arthritis but has not ever been diagnosed with gout. No history psoriasis, etc. 10 sys ROS done and negative aside from HPI PMH, PSH, FH, SH reviewed Home Medications Medication Instructions Recorded Amlodipine Besylate 10 mg PO DAILY 07/22/17 Furosemide [Lasix] 40 mg PO DAILY 07/22/17 Losartan Potassium 100 mg PO DAILY 07/22/17 Metoprolol Tartrate 100 mg PO BID 07/22/17 Pravastatin Sodium 40 mg PO HS 07/22/17 Docusate Sodium [Colace -] 200 mg PO DAILY #60 tab 07/27/17 Polyethylene Glycol 3350 [Miralax 17 gm PO DAILY 10 Days bottle 07/27/17 119 gm Btl -] oxyCODONE HCL [Roxicodone -] 5 mg PO Q4H PRN #10 tablet MDD 4 07/27/17 Cholecalciferol (Vitamin D3) 2,000 unit PO DAILY 08/15/17 [Vitamin D3 -] Apixaban [Eliquis] 2.5 mg PO BID #1 tablet 08/18/17 Potassium Chloride [K-Dur -] 20 meq PO DAILY tablet.er 08/18/17 predniSONE [Deltasone -] 10 mg PO ASDIR #18 tab 11/16/17 Cyanocobalamin [Vitamin B12 -] 500 mcg PO WEEKLY 01/18/19 OBJECTIVE: VS, labs, imaging reviewed NAD, AAO, resting comfortably in bed Chronic LLE lymphedematous changes at baseline with venous stasis changes accompanying. L-hallux with rubar and swelling; stereotyped gout findings. R-ankle slightly swollen per patient and painful to ROM RRR s1/2 no mgr Lungs CTAB, w/ sym exp NT ND +BS CN2-12 wnl, L-sided changes at baseline Normal mood, appropriate behavior XR foot reviewed; awaiting final read ASSESSMENT AND PLAN: Patient presents with arthritic sx suspicious for gout that have reduced his ability to ambulate; he would thus be an unsafe discharge and will be kept inpatient for PT eval. 1) Likely Gout with inability to ambulate -Evidenced by PE, history, and slightly elevated UA. Will start on indomethicin PRN, Prednisone 40 QD. If still painful will try colchicine. -Consult PT for evaluation; may need placed -Consider in vs. out-pt rheum eval (given anatomy difficult to tell if tappable synovial fluid with this, etc.). Check ESR, CRP. 2) S/P Hemorrhagic CVA -No new deficits but ambulates with cane at baseline due to this 3) Hx DVT (s/p IVC filter, on eliquis) -Continue home meds 4) HTN -Verify and continue home meds 6) HLD -Verify and continue home meds 7) Hx Arthritis -Has seen Dr. Land for this. Likely playing a role in his worsening underlying symptoms. 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
--- NOTE | 2019-01-18 22:45 | HP ---
CHIEF COMPLAINT: Ankle Pain, inability to ambulate PCP: Dr Hernandez HISTORY OF PRESENT ILLNESS: Pt is a 58 y/o gentleman with a significant past medical history of hemorrhagic CVA w/ left sided hemiparesis s/p craniotomy, HTN, DVT s/p IVC filter on Eliquis , and HLD who presented to [facility] due to pain in both of his ankles for 4 days. Pt describes the pain as sharp, constant and a 10/10 in severity. Presently, opt not in any pain as he is on stretcher and off his feet. Pt endorses that he has been rather immobile for the past few days as he has been sitting in a chair for a few days while visiting his mother in the hospital. Pt endorses he drinks nearly 1 bottle of wine per day. Pt also endorses that he consumes a lot of shellfish. Denies any mechanical trauma. Denies h/o fever, nausea/vomiting, sob, chest pain, recent infections, or autoimmune diseases. PMH- as above PSurgHx- Craniotomy 8 years ago Social- Denies tobacco use. Drinks 1 bottle wine per day FH- Denies h/o gout in family. Endorses mother/sister with arthritis NKDA ER course was notable for: (1) WBC 10.8, Uric Acid 7.5 (2) Indomethacin and Prednisone (3) HOME MEDICATIONS: Home Medications Medication Instructions Recorded Amlodipine Besylate 10 mg PO DAILY 07/22/17 Furosemide [Lasix] 20 mg PO DAILY 07/22/17 Losartan Potassium 100 mg PO DAILY 07/22/17 Metoprolol Tartrate 100 mg PO BID 07/22/17 Pravastatin Sodium 40 mg PO HS 07/22/17 Docusate Sodium [Colace -] 200 mg PO DAILY #60 tab 07/27/17 Polyethylene Glycol 3350 [Miralax 17 gm PO DAILY 10 Days bottle 07/27/17 119 gm Btl -] oxyCODONE HCL [Roxicodone -] 5 mg PO Q4H PRN #10 tablet MDD 4 07/27/17 Cholecalciferol (Vitamin D3) 1,000 unit PO DAILY 08/15/17 [Vitamin D3 -] Apixaban [Eliquis] 2.5 mg PO BID #1 tablet 08/18/17 Potassium Chloride [K-Dur -] 20 meq PO DAILY tablet.er 08/18/17 predniSONE [Deltasone -] 10 mg PO ASDIR #18 tab 08/18/17 REVIEW OF SYSTEMS CONSTITUTIONAL: Absent: fever, chills, diaphoresis, generalized weakness, malaise, loss of appetite, weight change HEENT: Absent: rhinorrhea, nasal congestion, throat pain, throat swelling, difficulty swallowing, mouth swelling, ear pain, eye pain, visual changes CARDIOVASCULAR: Absent: chest pain, syncope, palpitations, irregular heart rate, lightheadedness , peripheral edema RESPIRATORY: Absent: cough, shortness of breath, dyspnea with exertion, orthopnea, wheezing, stridor, hemoptysis GASTROINTESTINAL: Absent: abdominal pain, abdominal distension, nausea, vomiting, diarrhea, constipation, melena, hematochezia GENITOURINARY: Absent: dysuria, frequency, urgency, hesitancy, hematuria, flank pain, genital pain MUSCULOSKELETAL: present: arthralgia, joint swelling, SKIN: Absent: rash, itching, pallor HEMATOLOGIC/IMMUNOLOGIC: Absent: easy bleeding, easy bruising, lymphadenopathy, frequent infections ENDOCRINE: Absent: unexplained weight gain, unexplained weight loss, heat intolerance, cold intolerance NEUROLOGIC: Absent: headache, focal weakness or paresthesias, dizziness, unsteady gait, seizure, mental status changes, bladder or bowel incontinence PSYCHIATRIC: Absent: anxiety, depression, suicidal or homicidal ideation, hallucinations. PHYSICAL EXAMINATION Vital Signs - 24 hr 01/18/19 01/18/19 19:19 19:36 Temperature 99 F 99 F Pulse Rate 65 Pulse Rate [ 65 Right] Respiratory 16 16 Rate Blood Pressure 126/80 Blood Pressure 126/80 [Right Arm] O2 Sat by Pulse 99 99 Oximetry (%) GENERAL: Awake, alert, and fully oriented, in no acute distress. HEAD: Normal with no signs of trauma. EYES: EOMI Sclera Clear EARS, NOSE, THROAT: Dry Mucous membranes NECK: Supple No JVD LUNGS: CTAB HEART: RRR Nl S1S2 ABDOMEN: Soft NDNT UPPER EXTREMITIES: Left arm contracture. Inspection of joints upper extrem WNL. LOWER EXTREMITIES: Lymphadema left lower extremity. DP faint. Left Hallux erythematous, TTP. Limited ROM. Right foot TTP, FROM toes. DP Faint NEUROLOGICAL: Cranial nerves II-XII intact. left sided facial droop. PSYCHIATRIC: Cooperative. Good eye contact. Appropriate mood and affect. Laboratory Results - last 24 hr 01/18/19 01/18/19 01/18/19 19:17 19:17 19:17 WBC 10.6 H RBC 4.08 Hgb 13.0 Hct 38.8 D MCV 95.2 MCH 31.8 MCHC 33.4 RDW 13.9 Plt Count 210 D MPV 8.7 Absolute Neuts (auto) 8.3 H Neutrophils % 78.2 Lymphocytes % 11.3 D Monocytes % 9.6 Eosinophils % 0.2 D Basophils % 0.7 D Nucleated RBC % 0 PT with INR 18.60 H INR 1.57 H PTT (Actin FS) 42.6 H Sodium 138 Potassium 3.9 Chloride 102 Carbon Dioxide 29 Anion Gap 7 L BUN 20 H Creatinine 1.3 Creat Clearance w eGFR 56.31 Random Glucose 105 Uric Acid 7.6 H Calcium 9.3 Magnesium 1.9 Total Bilirubin 0.8 AST 11 L ALT 15 Alkaline Phosphatase 81 Total Protein 7.4 Albumin 3.8 ASSESSMENT/PLAN: Pt is a 58 y/o gentleman with a significant past medical history of hemorrhagic CVA w/ left sided hemiparesis s/p craniotomy, HTN, DVT s/p IVC filter on Eliquis , and HLD who presented to [facility] due to pain in both of his ankles for 4 days #Joint Pain 2/2 possible Gout Flare - Pt denies any mechanical trauma or recent infections. Low likelihood for septic arthritis given afebrile status and multiple joint involvement. -Given 50 mg Indomethacin in ED. Prednisone 40 mg. Will continue pt on Prednisone 40 mg. Indomethacin PRN. -Consider Rheumatology consult. -Physical therapy. -Counseled on avoidance of shellfish and heavy alcohol use. -Will not start Allopurinol at this juncture given acute flare. Consider placing placement on Allopurinol therapy upon discharge. Pt's Cr 1.3. CrCl 56. #CVA w/ residual L hemiparesis - C/w home medications- Eliquis. -Statin #HTN C/w Home meds #HLD C/w Statin #FEN No standing fluids Monitor electrolytes Low Salt, Low purine Diet #DVT ppx: Eliquis #Dispo: Med-Surg Visit type - Emergency Visit Emergency Visit: Yes ED Registration Date: 01/18/19 Care time: The patient presented to the Emergency Department on the above date and was hospitalized for further evaluation of their emergent condition. - New Patient This patient is new to me today: Yes Date on this admission: 01/19/19 - Critical Care Critical Care patient: No
[2019-01-18] MEDS ORDERED: predniSONE 20 MG TABLET (UD) PO ONE (23:30)
[2019-01-18] MEDS ORDERED: predniSONE 20 MG TABLET (UD) ONE (23:37)
[2019-01-19 01:26] VITALS: BMI 42.5
[2019-01-19 08:19] LABS: BASO % 0.2 % (0-2.0); HEMATOCRIT 37.3 % (35.4-49); HEMOGLOBIN 12.5 GM/dL (11.7-16.9); LYMPH % 20.9 % (8-40); MCH 31.5 pg (25.7-33.7); MCHC 33.6 g/dl (32.0-35.9); MEAN CELL VOLUME 93.8 fl (80-96); NEUT % 66.9 % (42.8-82.8); PLATELET COUNT 164 K/MM3 (134-434); RBC 3.97 M/mm3 (4.00-5.60); WHITE BLOOD COUNT 7.2 K/mm3 (4.0-10.0)
[2019-01-19 08:27] LABS: INR 1.43 (0.83-1.09); PROTHROMBIN TIME (PATIENT) 16.9 SEC (9.7-13.0)
[2019-01-19 08:29] LABS: ACTIVATED PTT 41.8 SECONDS (25.2-36.5)
[2019-01-19 08:34] LABS: ALBUMIN 3.2 g/dl (3.4-5.0); ALK PHOS 70 U/L (45-117); ANION GAP 9 MMOL/L (8-16); BILIRUBIN,TOTAL 0.9 mg/dL (0.2-1); BLOOD UREA NITROGEN 23 mg/dL (7-18); CALCIUM 8.5 mg/dL (8.5-10.1); CHLORIDE 104 mmol/L (98-107); CO2 26 mmol/L (21-32); CREATININE 1.2 mg/dL (0.55-1.3); GLUCOSE,RANDOM 95 mg/dL (74-106); MAGNESIUM 2.1 mg/dL (1.8-2.4); PHOSPHOROUS 3.6 mg/dL (2.5-4.9); POTASSIUM 3.6 mmol/L (3.5-5.1); SGOT/AST 20 U/L (15-37); SGPT/ALT 14 U/L (13-61); SODIUM 139 mmol/L (136-145); TOT PROT 6.5 g/dl (6.4-8.2)
[2019-01-19] MEDS: FUROSEMIDE 40 MG TABLET (FP) PO SCH (09:23)
[2019-01-19] MEDS: amLODIPine BESYLATE 10 MG TABLET (FP) PO SCH (09:23)
[2019-01-19] MEDS: predniSONE 20 MG TABLET (UD) PO SCH (09:23)
[2019-01-19] MEDS: CHOLECALCIFEROL (VITAMIN D3) 1,000 UNIT TABLET (FP) PO SCH (09:23)
[2019-01-19] MEDS: CYANOCOBALAMIN 1,000 MCG TABLET (FP) PO SCH (09:23)
[2019-01-19] MEDS: LOSARTAN POTASSIUM 50 MG TABLET (FP) PO SCH (09:23)
[2019-01-19] MEDS: METOPROLOL TARTRATE 50 MG TABLET (FP) PO SCH ×2 (09:23→21:26)
[2019-01-19] MEDS: APIXABAN 2.5 MG TABLET PO SCH ×2 (09:23→21:26)
--- NOTE | 2019-01-19 09:29 | PN ---
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, HTN, DVT s/p IVC filter on Eliquis, and HLD who presented to [facility] due to pain in both of his Left Toe for 4 days - Current Medication List Current Medications: Active Medications Amlodipine Besylate (Norvasc -) 10 mg PO DAILY [facility] Last Admin: 01/19/19 09:23 Dose: 10 mg Apixaban (Eliquis -) 2.5 mg PO BID [facility] Last Admin: 01/19/19 09:23 Dose: 2.5 mg Atorvastatin Calcium (Lipitor -) 10 mg PO [facility] Cholecalciferol (Vitamin D3 -) 2,000 unit PO DAILY [facility] Last Admin: 01/19/19 09:23 Dose: 2,000 unit Cyanocobalamin (Vitamin B12 -) 1,000 mcg PO DAILY [facility] Last Admin: 01/19/19 09:23 Dose: 1,000 mcg Furosemide (Lasix -) 40 mg PO DAILY [facility] Last Admin: 01/19/19 09:23 Dose: 40 mg Losartan Potassium (Cozaar -) 100 mg PO DAILY [facility] Last Admin: 01/19/19 09:23 Dose: 100 mg Metoprolol Tartrate (Lopressor -) 100 mg PO BID [facility] Last Admin: 01/19/19 09:23 Dose: 100 mg Prednisone (Deltasone -) 40 mg PO DAILY [facility] Last Admin: 01/19/19 09:23 Dose: 40 mg - Objective Vital Signs: Vital Signs Temperature 97.5 F L 01/19/19 05:51 Pulse Rate 57 L 01/19/19 05:51 Respiratory Rate 18 01/19/19 07:00 Blood Pressure 132/88 01/19/19 05:51 O2 Sat by Pulse Oximetry (%) 99 01/18/19 19:36 Middle aged man noyt in distress feels improved since hospitalization HEENT: Mm moist, no anemia, PERRLA EOMI NECK: No JVd No Bruit CHEST: CTA B/L CVS: S1S2 R no m/g/r ABD: Obese non tender Bs + EXT" Left LE Swelling +, Left Toe is inflamed and tender [employer] [place]: AOX3 ar base line Left sided weakness Labs: CBC, BMP 01/19/19 06:30 01/19/19 06:30 INR, PTT INR 1.43 (0.83-1.09) H 01/19/19 06:30 Problem List - Problems (1) Inflammatory polyarthritis Assessment/Plan: H/O Rt knee pain and swelling in the past visited Dr Land never disgnosed Gout this presentation is consited wiitgh gout responding to Po prednisone TWBC trending normal will DC Indomethacin add Motrin PRN< PT evaluation, Rhematology was colled but on Vacation will F/U clinical course. Code(s): M06.4 - INFLAMMATORY POLYARTHROPATHY (2) Deep vein thrombosis (DVT) of femoral vein of left lower extremity Assessment/Plan: Chronic VTE on Prophylactic apaxiban s/p IVC filter Code(s): I82.412 - ACUTE EMBOLISM AND THROMBOSIS OF LEFT FEMORAL VEIN Qualifiers: Chronicity: chronic Qualified Code(s): I82.512 - Chronic embolism and thrombosis of left femoral vein (3) HTN (hypertension) Assessment/Plan: Well controlled on amlodipine and Losartan Code(s): I10 - ESSENTIAL (PRIMARY) HYPERTENSION (4) Morbid obesity with BMI of 40.0-44.9, adult Assessment/Plan: Nutritional consult as out patient Code(s): E66.01 - MORBID (SEVERE) OBESITY DUE TO EXCESS CALORIES; Z68.41 - BODY MASS INDEX (BMI) 40.0-44.9, ADULT (5) Hypercholesteremia Assessment/Plan: Cont statin Code(s): E78.00 - PURE HYPERCHOLESTEROLEMIA, UNSPECIFIED (6) CVA (cerebral vascular accident) Assessment/Plan: H/O CVA hemmorhagic Left sided residual weakness. Code(s): I63.9 - CEREBRAL INFARCTION, UNSPECIFIED
--- NOTE | 2019-01-19 10:39 | EKG ---
Test Reason : Blood Pressure : / mmHG Vent. Rate : 077 BPM Atrial Rate : 077 BPM P-R Int : 174 ms QRS Dur : 092 ms QT Int : 414 ms P-R-T Axes : 001 012 007 degrees QTc Int : 468 ms NORMAL SINUS RHYTHM NONSPECIFIC ST ABNORMALITY Confirmed by AGNIESZKA KIM MD ([id number]) on 01/19/2019 10:38:37 AM Referred By: BÁRBARA Confirmed By:AGNIESZKA KIM MD
[2019-01-19] MEDS: IBUPROFEN 400 MG TABLET (FP) PO PRN (16:34)
[2019-01-19] MEDS: ATORVASTATIN CA 10 MG TABLET (FP) PO SCH (21:26)
[2019-01-20] MEDS: IBUPROFEN 400 MG TABLET (FP) PO PRN (00:46)
[2019-01-20 06:59] LABS: BASO % 0.3 % (0-2.0); EOS % 0.1 % (0-4.5); HEMATOCRIT 35.2 % (35.4-49); HEMOGLOBIN 11.7 GM/dL (11.7-16.9); LYMPH % 12.6 % (8-40); MCH 31.1 pg (25.7-33.7); MCHC 33.3 g/dl (32.0-35.9); MEAN CELL VOLUME 93.4 fl (80-96); MEAN PLT VOLUME 9.1 fl (7.5-11.1); MONO % 7.8 % (3.8-10.2); NEUT % 79.2 % (42.8-82.8); PLATELET COUNT 216 K/MM3 (134-434); RBC 3.77 M/mm3 (4.00-5.60); RDW 13.8 % (11.9-15.9); WHITE BLOOD COUNT 9.2 K/mm3 (4.0-10.0)
[2019-01-20 07:30] LABS: ANION GAP 8 MMOL/L (8-16); BLOOD UREA NITROGEN 23 mg/dL (7-18); CALCIUM 8.8 mg/dL (8.5-10.1); CHLORIDE 105 mmol/L (98-107); CO2 24 mmol/L (21-32); GLUCOSE,RANDOM 106 mg/dL (74-106); POTASSIUM 3.4 mmol/L (3.5-5.1); SODIUM 137 mmol/L (136-145)
--- NOTE | 2019-01-20 09:08 | PN ---
Progress Note, Physician - Current Medication List Current Medications: Active Medications Amlodipine Besylate (Norvasc -) 10 mg PO DAILY [facility] Last Admin: 01/19/19 09:23 Dose: 10 mg Apixaban (Eliquis -) 2.5 mg PO BID [facility] Last Admin: 01/19/19 21:26 Dose: 2.5 mg Atorvastatin Calcium (Lipitor -) 10 mg PO HS [facility] Last Admin: 01/19/19 21:26 Dose: 10 mg Cholecalciferol (Vitamin D3 -) 2,000 unit PO DAILY [facility] Last Admin: 01/19/19 09:23 Dose: 2,000 unit Cyanocobalamin (Vitamin B12 -) 1,000 mcg PO DAILY [facility] Last Admin: 01/19/19 09:23 Dose: 1,000 mcg Docusate Sodium (Colace -) 200 mg PO DAILY [facility] Furosemide (Lasix -) 40 mg PO DAILY [facility] Last Admin: 01/19/19 09:23 Dose: 40 mg Ibuprofen (Motrin -) 400 mg PO Q6H PRN PRN Reason: FEVER Last Admin: 01/20/19 00:46 Dose: 400 mg Losartan Potassium (Cozaar -) 100 mg PO DAILY [facility] Last Admin: 01/19/19 09:23 Dose: 100 mg Metoprolol Tartrate (Lopressor -) 100 mg PO BID [facility] Last Admin: 01/19/19 21:26 Dose: 100 mg Oxycodone HCl (Roxicodone -) 5 mg PO Q4H PRN PRN Reason: PAIN SCALE 6-10 Polyethylene Glycol (Miralax (For Daily Use) -) 17 gm PO DAILY [facility] Potassium Chloride (K-Dur -) 20 meq PO DAILY [facility] Prednisone (Deltasone -) 40 mg PO DAILY [facility] Last Admin: 01/19/19 09:23 Dose: 40 mg - Objective Vital Signs: Vital Signs Temperature 97.7 F 01/20/19 06:00 Pulse Rate 60 01/20/19 06:00 Respiratory Rate 20 01/20/19 06:00 Blood Pressure 106/79 01/20/19 06:00 O2 Sat by Pulse Oximetry (%) 98 01/19/19 21:00 Constitutional: Yes: Well Nourished, No Distress, Calm Eyes: Yes: WNL, Conjunctiva Clear, EOM Intact HENT: Yes: WNL, Atraumatic, Normocephalic Neck: Yes: WNL, Supple, Trachea Midline Cardiovascular: Yes: WNL, Regular Rate and Rhythm Respiratory: Yes: WNL, Regular, CTA Bilaterally Gastrointestinal: Yes: WNL, Normal Bowel Sounds, Soft Musculoskeletal: Yes: WNL Extremities: Yes: WNL Edema: No Peripheral Pulses WNL: Yes Integumentary: Yes: WNL Neurological: Yes: WNL, Alert, Oriented ...Motor Strength: WNL Psychiatric: Yes: WNL, Alert, Oriented Labs: CBC, BMP 01/20/19 06:00 01/20/19 06:00 INR, PTT INR 1.43 (0.83-1.09) H 01/19/19 06:30 Assessment/Plan Patient presents with arthritic sx suspicious for gout that have reduced his ability to ambulate; he would thus be an unsafe discharge and will be kept inpatient for PT evaluation. 1) Likely Gout with inability to ambulate -Evidenced by PE, history, and slightly elevated UA. Will start on indomethicin PRN, Prednisone 40 QD. If still painful will try colchicine. -Consult PT for evaluation; may need placed -Consider in vs. out-pt rheum eval (given anatomy difficult to tell if tappable synovial fluid with this, etc.). Check ESR, CRP. 2) S/P Hemorrhagic CVA -No new deficits but ambulates with cane at baseline due to this 3) Hx DVT (s/p IVC filter, on apixiban - spoke to the patient regarding him being on apixiban 2.5mg twice, however the patient has no hx of kidney disease, he is not >80, nor he is <60kg. according to him the apixiban was started about 2.5mg Twice a day 2 years ago after he was on warfarin with uncontrolled INR. he was started on apixiban and kept for the past 2 years, after careful discussion with the patient will consider continuing the 2.5mg Twice a day as a prophylaxis dose to prevent of reoccurrence of the DVT, but i informed the patient to speak to his PCP about the medication maybe he can stop it if he does not require it. he acknowledge and will take it in consideration. -Continue home meds 4) HTN -Verify and continue home meds 6) HLD -Verify and continue home meds 7) Hx Arthritis -Has seen Dr. Short for this. Likely playing a role in his worsening underlying symptoms. 8) Morbid Obesity -Strip Cleaner prior to DC 9) Chronic Pain -Verify and continue home meds
[2019-01-20] MEDS: CHOLECALCIFEROL (VITAMIN D3) 1,000 UNIT TABLET (FP) PO SCH (10:52)
[2019-01-20] MEDS: CYANOCOBALAMIN 1,000 MCG TABLET (FP) PO SCH (10:53)
[2019-01-20] MEDS: APIXABAN 2.5 MG TABLET PO SCH ×2 (10:53→21:52)
[2019-01-20] MEDS: FUROSEMIDE 40 MG TABLET (FP) PO SCH (10:53)
[2019-01-20] MEDS: POTASSIUM CHLORIDE TABS 20 MEQ TABLET.ER (FP) PO SCH (10:53)
[2019-01-20] MEDS: predniSONE 20 MG TABLET (UD) PO SCH (10:53)
[2019-01-20] MEDS: DOCUSATE SODIUM 100 MG CAPSULE (FP) PO SCH (10:53)
[2019-01-20] MEDS: oxyCODONE HCL 5 MG TABLET PO PRN (10:58)
[2019-01-20] MEDS: amLODIPine BESYLATE 10 MG TABLET (FP) PO SCH (10:58)
[2019-01-20] MEDS: LOSARTAN POTASSIUM 50 MG TABLET (FP) PO SCH (13:08)
[2019-01-20] MEDS: METOPROLOL TARTRATE 50 MG TABLET (FP) PO SCH ×2 (13:08→21:53)
[2019-01-20] MEDS: POLYETHYLENE GLYCOL 3350 119 GM BTL PO SCH (17:23)
[2019-01-20] MEDS: ATORVASTATIN CA 10 MG TABLET (FP) PO SCH (21:52)
[2019-01-20] MEDS: ALLOPURINOL 100 MG TABLET (FP) PO SCH (21:53)
[2019-01-21 07:25] LABS: BASO % 0.3 % (0-2.0); HEMATOCRIT 35.2 % (35.4-49); HEMOGLOBIN 11.9 GM/dL (11.7-16.9); MCH 31.6 pg (25.7-33.7); MCHC 33.8 g/dl (32.0-35.9); MEAN CELL VOLUME 93.3 fl (80-96); MEAN PLT VOLUME 9.4 fl (7.5-11.1); MONO % 6.2 % (3.8-10.2); NEUT % 81.5 % (42.8-82.8); PLATELET COUNT 251 K/MM3 (134-434); RBC 3.77 M/mm3 (4.00-5.60); RDW 13.9 % (11.9-15.9); WHITE BLOOD COUNT 9.9 K/mm3 (4.0-10.0)
[2019-01-21 07:46] LABS: ALBUMIN 3.1 g/dl (3.4-5.0); ALK PHOS 65 U/L (45-117); ANION GAP 8 MMOL/L (8-16); BILIRUBIN,TOTAL 0.2 mg/dL (0.2-1); BLOOD UREA NITROGEN 26 mg/dL (7-18); CALCIUM 8.3 mg/dL (8.5-10.1); CHLORIDE 106 mmol/L (98-107); CO2 26 mmol/L (21-32); CREATININE 1.1 mg/dL (0.55-1.3); GLUCOSE,RANDOM 109 mg/dL (74-106); POTASSIUM 3.8 mmol/L (3.5-5.1); SGOT/AST 21 U/L (15-37); SGPT/ALT 21 U/L (13-61); SODIUM 140 mmol/L (136-145); TOT PROT 6.4 g/dl (6.4-8.2)
[2019-01-21] MEDS ORDERED: KETOROLAC TROMETHAMINE 30 MG/1 ML VIAL IM ONE (08:53)
[2019-01-21] MEDS: LOSARTAN POTASSIUM 50 MG TABLET (FP) PO SCH (10:26)
[2019-01-21] MEDS: DOCUSATE SODIUM 100 MG CAPSULE (FP) PO SCH (10:27)
[2019-01-21] MEDS: CHOLECALCIFEROL (VITAMIN D3) 1,000 UNIT TABLET (FP) PO SCH (10:27)
[2019-01-21] MEDS: METOPROLOL TARTRATE 50 MG TABLET (FP) PO SCH ×2 (10:28→21:46)
[2019-01-21] MEDS: ALLOPURINOL 100 MG TABLET (FP) PO SCH ×2 (10:32→21:47)
[2019-01-21] MEDS: amLODIPine BESYLATE 10 MG TABLET (FP) PO SCH (10:32)
[2019-01-21] MEDS: FUROSEMIDE 40 MG TABLET (FP) PO SCH (10:32)
[2019-01-21] MEDS: predniSONE 20 MG TABLET (UD) PO SCH (10:33)
[2019-01-21] MEDS: CYANOCOBALAMIN 1,000 MCG TABLET (FP) PO SCH (10:33)
[2019-01-21] MEDS: APIXABAN 2.5 MG TABLET PO SCH ×2 (10:33→21:46)
[2019-01-21] MEDS: POTASSIUM CHLORIDE TABS 20 MEQ TABLET.ER (FP) PO SCH (10:33)
[2019-01-21] MEDS ORDERED: COLCHICINE 0.6 MG TABLET (FP) PO STA (10:34)
--- NOTE | 2019-01-21 10:35 | PN ---
Progress Note, Physician Chief Complaint: patient is still complaining of inability to put pressure on the leg, and since the stroke he had the left leg is weak for him to bare his weight, will reassess the patient after pain control and possible d/c him tomorrow - Current Medication List Current Medications: Active Medications Allopurinol (Zyloprim -) 100 mg PO BID [facility] Last Admin: 01/20/19 21:53 Dose: 100 mg Amlodipine Besylate (Norvasc -) 10 mg PO DAILY [facility] Last Admin: 01/20/19 10:58 Dose: Not Given Apixaban (Eliquis -) 2.5 mg PO BID [facility] Last Admin: 01/20/19 21:52 Dose: 2.5 mg Atorvastatin Calcium (Lipitor -) 10 mg PO HS [facility] Last Admin: 01/20/19 21:52 Dose: 10 mg Cholecalciferol (Vitamin D3 -) 2,000 unit PO DAILY [facility] Last Admin: 01/20/19 10:52 Dose: 2,000 unit Cyanocobalamin (Vitamin B12 -) 1,000 mcg PO DAILY [facility] Last Admin: 01/20/19 10:53 Dose: 1,000 mcg Docusate Sodium (Colace -) 200 mg PO DAILY [facility] Last Admin: 01/20/19 10:53 Dose: 200 mg Furosemide (Lasix -) 40 mg PO DAILY [facility] Last Admin: 01/20/19 10:53 Dose: 40 mg Losartan Potassium (Cozaar -) 100 mg PO DAILY [facility] Last Admin: 01/20/19 13:08 Dose: 100 mg Metoprolol Tartrate (Lopressor -) 100 mg PO BID [facility] Last Admin: 01/20/19 21:53 Dose: 100 mg Oxycodone HCl (Roxicodone -) 5 mg PO Q4H PRN PRN Reason: PAIN SCALE 6-10 Last Admin: 01/20/19 10:58 Dose: 5 mg Polyethylene Glycol (Miralax (For Daily Use) -) 17 gm PO DAILY [facility] Last Admin: 01/20/19 17:23 Dose: Not Given Potassium Chloride (K-Dur -) 20 meq PO DAILY [facility] Last Admin: 01/20/19 10:53 Dose: 20 meq Prednisone (Deltasone -) 40 mg PO DAILY [facility] Last Admin: 01/20/19 10:53 Dose: 40 mg - Objective Vital Signs: Vital Signs Temperature 97.5 F L 01/21/19 05:00 Pulse Rate 53 L 01/21/19 05:00 Respiratory Rate 18 01/21/19 05:00 Blood Pressure 118/74 01/21/19 05:00 O2 Sat by Pulse Oximetry (%) 95 01/20/19 21:00 Constitutional: Yes: Well Nourished, No Distress, Calm Eyes: Yes: WNL, Conjunctiva Clear, EOM Intact HENT: Yes: WNL, Atraumatic, Normocephalic Neck: Yes: WNL, Supple, Trachea Midline Cardiovascular: Yes: WNL, Regular Rate and Rhythm Respiratory: Yes: WNL, Regular, CTA Bilaterally Gastrointestinal: Yes: WNL, Normal Bowel Sounds, Soft Musculoskeletal: Yes: WNL, Joint Stiffness, Joint Swelling Edema: Yes Edema: LLE: Trace, RLE: Trace Peripheral Pulses WNL: Yes Integumentary: Yes: WNL ...Motor Strength: WNL, LLE (weakness after the hemorragic strok that the patient had) Psychiatric: Yes: WNL, Alert, Oriented Labs: CBC, BMP 01/21/19 06:00 01/21/19 06:00 INR, PTT INR 1.43 (0.83-1.09) H 01/19/19 06:30 Assessment/Plan Patient presents with arthritic sx suspicious for gout that have reduced his ability to ambulate; he would thus be an unsafe discharge and will be kept inpatient for PT evaluation. 1) Likely Gout with inability to ambulate -Evidenced by PE, history, and slightly elevated UA. - Prednisone 40 QD. - will start colchicine today 1.2mg stat dose then will give 0.6mg twice a day - gave a stat dose of toradol 30mg IM - PT for evaluation; may need placed - start the patient on Pantaprezole 40mg for GI prophylaxis 2) S/P Hemorrhagic CVA -No new deficits but ambulates with cane at baseline due to this 3) Hx DVT (s/p IVC filter, on apixiban - spoke to the patient regarding him being on apixiban 2.5mg twice, however the patient has no hx of kidney disease, he is not >80, nor he is <60kg. according to him the apixiban was started about 2.5mg Twice a day 2 years ago after he was on warfarin with uncontrolled INR. he was started on apixiban and kept for the past 2 years, after careful discussion with the patient will consider continuing the 2.5mg Twice a day as a prophylaxis dose to prevent of reoccurrence of the DVT, but i informed the patient to speak to his PCP about the medication maybe he can stop it if he does not require it. he acknowledge and will take it in consideration. -Continue home meds - will continue since after careful history review the patient is on the prophylactic dose for DVT with apixiban, he does understand the risks and benefits especially with the history of prior hemorrhagic stroke in the past 4) HTN -Verify and continue home meds 6) HLD -Verify and continue home meds 7) Hx Arthritis -Has seen Dr. Short for this. Likely playing a role in his worsening underlying symptoms. 8) Morbid Obesity -Clinical Scientist prior to DC 9) Chronic Pain -Verify and continue home meds
[2019-01-21] MEDS ORDERED: KETOROLAC TROMETHAMINE 10 MG TABLET PO PRN (10:36)
[2019-01-21] MEDS: POLYETHYLENE GLYCOL 3350 119 GM BTL PO SCH (10:45)
[2019-01-21] MEDS: ATORVASTATIN CA 10 MG TABLET (FP) PO SCH (21:46)
[2019-01-21] MEDS: COLCHICINE 0.6 MG TABLET (FP) PO SCH (21:46)
--- NOTE | 2019-01-22 08:37 | DS ---
Physical Examination Vital Signs: Vital Signs Temperature 97.6 F 01/22/19 05:46 Pulse Rate 47 L 01/22/19 05:46 Respiratory Rate 18 01/22/19 05:46 Blood Pressure 134/87 01/22/19 05:46 O2 Sat by Pulse Oximetry (%) 97 01/21/19 21:00 Middle aged man noyt in distress feels improved since hospitalization HEENT: Mm moist, no anemia, PERRLA EOMI NECK: No JVd No Bruit CHEST: CTA B/L CVS: S1S2 R no m/g/r ABD: Obese non tender Bs + EXT" Left LE Swelling +, Left Toe is inflamed and tender [employer]: AOX3 ar base line Left sided weakness Labs: CBC, BMP 01/21/19 06:00 01/21/19 06:00 Discharge Summary Reason For Visit: INABILITY TO AMBULANCE DUE TO ANKLE OR FOOT,GOUT Current Active Problems Ankle pain, right (Acute) CVA (cerebral vascular accident) (Acute) Foot pain, left (Acute) Gout (Acute) Hospital Course: 58 y/o gentleman with a significant past medical history of 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 due to pain in both of his Left Toe for 4 days, clinically treated for acute Gout, patient was put on Po prednisone, 40 mg daily will taper it over 7 days on allopurinol 100 mg BID and Colchicine, evaluated by Orthopedics agress with the plan , CRP is 4. Condition: Good - Instructions Referrals: Medhat Hernandez MD [Primary Care Provider] - 2 Weeks Carrington Land MD [Staff Physician] - 2 Weeks Disposition: RESIDENTIAL FACILITY - Home Medications Comprehensive Discharge Medication List: Ambulatory Orders Amlodipine Besylate 10 mg PO DAILY 07/22/17 Furosemide [Lasix] 40 mg PO DAILY 07/22/17 Losartan Potassium 100 mg PO DAILY 07/22/17 Metoprolol Tartrate 100 mg PO BID 07/22/17 Pravastatin Sodium 40 mg PO HS 07/22/17 Docusate Sodium [Colace -] 200 mg PO DAILY #60 tab 07/27/17 Polyethylene Glycol 3350 [Miralax 119 gm Btl -] 17 gm PO DAILY 10 Days bottle 07/27/17 oxyCODONE HCL [Roxicodone -] 5 mg PO Q4H PRN #10 tablet MDD 4 07/27/17 Cholecalciferol (Vitamin D3) [Vitamin D3 -] 2,000 unit PO DAILY 08/15/17 Apixaban [Eliquis] 2.5 mg PO BID #1 tablet 08/18/17 Potassium Chloride [K-Dur -] 20 meq PO DAILY tablet.er 08/18/17 predniSONE [Deltasone -] 10 mg PO ASDIR #18 tab 08/18/17 Cyanocobalamin [Vitamin B12 -] 500 mcg PO WEEKLY 01/18/19 Allopurinol [Zyloprim -] 100 mg PO BID #60 tablet 01/22/19 Ketorolac Tromethamine [Toradol -] 10 mg PO Q8H PRN #30 tablet MDD three predniSONE [Deltasone -] 30 mg PO DAILY #7 tablet 01/22/19
[2019-01-22] MEDS: CHOLECALCIFEROL (VITAMIN D3) 1,000 UNIT TABLET (FP) PO SCH (09:37)
[2019-01-22] MEDS: CYANOCOBALAMIN 1,000 MCG TABLET (FP) PO SCH (09:38)
[2019-01-22] MEDS: POTASSIUM CHLORIDE TABS 20 MEQ TABLET.ER (FP) PO SCH (09:38)
[2019-01-22] MEDS: LOSARTAN POTASSIUM 50 MG TABLET (FP) PO SCH (09:38)
[2019-01-22] MEDS: predniSONE 20 MG TABLET (UD) PO SCH (09:38)
[2019-01-22] MEDS: ALLOPURINOL 100 MG TABLET (FP) PO SCH ×2 (09:38→21:56)
[2019-01-22] MEDS: FUROSEMIDE 40 MG TABLET (FP) PO SCH (09:38)
[2019-01-22] MEDS: METOPROLOL TARTRATE 50 MG TABLET (FP) PO SCH ×2 (09:39→21:56)
[2019-01-22] MEDS: COLCHICINE 0.6 MG TABLET (FP) PO SCH ×2 (09:39→21:56)
[2019-01-22] MEDS: amLODIPine BESYLATE 10 MG TABLET (FP) PO SCH (09:39)
[2019-01-22] MEDS: APIXABAN 2.5 MG TABLET PO SCH ×2 (09:39→21:56)
[2019-01-22] MEDS: DOCUSATE SODIUM 100 MG CAPSULE (FP) PO SCH (09:42)
[2019-01-22] MEDS: POLYETHYLENE GLYCOL 3350 119 GM BTL PO SCH (09:43)
--- NOTE | 2019-01-22 10:05 | PN ---
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, HTN, DVT s/p IVC filter on Eliquis, and HLD who presented to [facility] due to pain in both of his Left Toe for 4 days, partial response to Prednisone , yesterday Colichicine added still c/o 6/10 throbbing pain Left toe - Current Medication List Current Medications: Active Medications Allopurinol (Zyloprim -) 100 mg PO BID [facility] Last Admin: 01/22/19 09:38 Dose: 100 mg Amlodipine Besylate (Norvasc -) 10 mg PO DAILY [facility] Last Admin: 01/22/19 09:39 Dose: 10 mg Apixaban (Eliquis -) 2.5 mg PO BID [facility] Last Admin: 01/22/19 09:39 Dose: 2.5 mg Atorvastatin Calcium (Lipitor -) 10 mg PO HS [facility] Last Admin: 01/21/19 21:46 Dose: 10 mg Cholecalciferol (Vitamin D3 -) 2,000 unit PO DAILY [facility] Last Admin: 01/22/19 09:37 Dose: 2,000 unit Colchicine (Colcrys -) 0.6 mg PO BID [facility] Last Admin: 01/22/19 09:39 Dose: 0.6 mg Cyanocobalamin (Vitamin B12 -) 1,000 mcg PO DAILY [facility] Last Admin: 01/22/19 09:38 Dose: 1,000 mcg Docusate Sodium (Colace -) 200 mg PO DAILY [facility] Last Admin: 01/22/19 09:42 Dose: 200 mg Furosemide (Lasix -) 40 mg PO DAILY [facility] Last Admin: 01/22/19 09:38 Dose: 40 mg Ketorolac Tromethamine (Toradol) 10 mg PO Q8H PRN PRN Reason: PAIN LEVEL 6-10 Stop: 01/26/19 10:44 Losartan Potassium (Cozaar -) 100 mg PO DAILY [facility] Last Admin: 01/22/19 09:38 Dose: 100 mg Metoprolol Tartrate (Lopressor -) 100 mg PO BID [facility] Last Admin: 01/22/19 09:39 Dose: 100 mg Oxycodone HCl (Roxicodone -) 5 mg PO Q4H PRN PRN Reason: PAIN SCALE 6-10 Last Admin: 01/20/19 10:58 Dose: 5 mg Polyethylene Glycol (Miralax (For Daily Use) -) 17 gm PO DAILY [facility] Last Admin: 01/22/19 09:43 Dose: Not Given Potassium Chloride (K-Dur -) 20 meq PO DAILY [facility] Last Admin: 01/22/19 09:38 Dose: 20 meq Prednisone (Deltasone -) 40 mg PO DAILY [facility] Last Admin: 01/22/19 09:38 Dose: 40 mg - Objective Vital Signs: Vital Signs Temperature 97.6 F 01/22/19 05:46 Pulse Rate 47 L 01/22/19 05:46 Respiratory Rate 18 01/22/19 05:46 Blood Pressure 134/87 01/22/19 05:46 O2 Sat by Pulse Oximetry (%) 97 01/21/19 21:00 Middle aged man noyt in distress feels improved since hospitalization still c/o Left toe pain throbbing in nature HEENT: Mm moist, no anemia, PERRLA EOMI NECK: No JVd No Bruit CHEST: CTA B/L CVS: S1S2 R no m/g/r ABD: Obese non tender Bs + EXT: Left LE Swelling +, Left Toe is inflamed and tender [employer]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 Left sided weakness Labs: CBC, BMP 01/21/19 06:00 01/21/19 06:00 INR, PTT INR 1.43 (0.83-1.09) H 01/19/19 06:30 Problem List - Problems (1) Deep vein thrombosis (DVT) of femoral vein of left lower extremity Assessment/Plan: Chronic VTE on Prophylactic apaxiban s/p IVC filter Code(s): I82.412 - ACUTE EMBOLISM AND THROMBOSIS OF LEFT FEMORAL VEIN Qualifiers: Chronicity: chronic Qualified Code(s): I82.512 - Chronic embolism and thrombosis of left femoral vein (2) HTN (hypertension) Assessment/Plan: Well controlled on amlodipine and Losartan Code(s): I10 - ESSENTIAL (PRIMARY) HYPERTENSION (3) Morbid obesity with BMI of 40.0-44.9, adult Assessment/Plan: Nutritional consult as out patient Code(s): E66.01 - MORBID (SEVERE) OBESITY DUE TO EXCESS CALORIES; Z68.41 - BODY MASS INDEX (BMI) 40.0-44.9, ADULT (4) Hypercholesteremia Assessment/Plan: Cont statin Code(s): E78.00 - PURE HYPERCHOLESTEROLEMIA, UNSPECIFIED (5) CVA (cerebral vascular accident) Assessment/Plan: H/O CVA hemmorhagic Left sided residual weakness. Code(s): I63.9 - CEREBRAL INFARCTION, UNSPECIFIED (6) Foot pain, left Assessment/Plan: Left toe pain clinically looks like gout but now developed throbbing pain with localised are of inflamation on dorsum of great toe patient is on Prednisone, allopurinol , will consult ID and Rhematology and F/U CRP considering throbbing , Left foot X ray. Code(s): M79.672 - PAIN IN LEFT FOOT
--- NOTE | 2019-01-22 11:36 | CONSULT ---
Consult - text type - Consultation Consultation Note: ORTHOPEDIC SURGERY CONSULTATION NOTE Department of Orthopedic Surgery HISTORY OF PRESENT ILLNESS Mr. 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 The orthopedic service was consulted for left great toe pain, which has improved since his admission. The patient denies any injury to his foot / ankle, and he denies any current pain to his right ankle, foot, or toes.The patient notes pain localized over his left great toe. Due to his history of CVA in the past, the patient states that he has limited ROM in dorsiflexion of his foot and ankle, and has limited sensation in his LLE. Denies any other injuries. Denies fever, chills, cough, or other constitutional complaints. Denies tobacco use, drug use. States he drinks approximately a bottle of wine a day. The patient lives with family uses no assistive devices at baseline. Patient states that he has had old injuries to both of his ankles when he was in high school while playing football. FAMILY HISTORY non-contributory REVIEW OF SYMPTOMS A twelve-point review of systems was performed and was negative except as noted in HPI. PHYSICAL EXAM Constitutional: Alert and oriented to person, place, and time. Appears well- developed and well-nourished. No acute distress, appropriate mood and affect. Right Lower Extremity: Skin warm, dry, and intact; no lesions, rashes or ulcers noted. Muscle mass equal and symmetric to contralateral side. No atrophy noted. No masses or effusions noted. No tenderness to palpation all joints; nontender throughout rest of extremity. No cords or calf tenderness No significant calf/ankle edema. Full passive and active ROM, free from pain. Joints stable with no pathologic laxity. EHL/TA/GS motor intact; SILT distally; 2+ DP pulses; Cap refill brisk. Tone and reflexes normal. Left Lower Extremity: Skin warm, dry, and intact; no lesions, rashes or ulcers noted. He has mild calf edema which patient states is chronic in nature. Mild erythema over the great toe. Muscle mass equal and symmetric to contralateral side. No atrophy noted. No masses or effusions noted. Tender to palpation at over the left great toe; nontender throughout rest of extremity. No cords or calf tenderness; No significant ankle edema. Full passive ROM of the ankle and knee, free from pain. Pain with ROM of the great toe. Joints stable with no pathologic laxity. EHL/GC/TA motor diminished secondary to history of CVA; Diminished sensation distally secondary to history of CVA; 2+ DP pulses; Cap refill brisk. Tone and reflexes normal. Active Problems Problem Status Category Onset Ankle pain, right Acute Medical CVA (cerebral vascular accident) Acute Medical Foot pain, left Acute Medical Gout Acute Medical Past Medical History SHOT MAN CVA Cardio/Vascular HTN,Hyperlipdemia Past Surgical History Past Surgical History Craniotomy Social History Smoking history Never smoked Hx Alcohol Use Yes Allergies Allergy/AdvReac Type Severity Reaction Status Date / Time No Known Allergies Allergy Verified 01/18/19 18:32 Active Medications Generic Name Dose Route Start Last Admin Trade Name Freq PRN Reason Stop Dose Admin Allopurinol 100 mg 01/20/19 22:00 01/22/19 09:38 Zyloprim - PO 100 mg BID [facility] Administration Amlodipine Besylate 10 mg 01/19/19 10:00 01/22/19 09:39 Norvasc - PO 10 mg DAILY [facility] Administration Apixaban 2.5 mg 01/19/19 10:00 01/22/19 09:39 Eliquis - PO 2.5 mg BID [facility] Administration Atorvastatin Calcium 10 mg 01/19/19 22:00 01/21/19 21:46 Lipitor - PO 10 mg HS [facility] Administration Cholecalciferol 2,000 unit 01/19/19 10:00 01/22/19 09:37 Vitamin D3 - PO 2,000 unit DAILY [facility] Administration Colchicine 0.6 mg 01/21/19 22:00 01/22/19 09:39 Colcrys - PO 0.6 mg BID [facility] Administration Cyanocobalamin 1,000 mcg 01/19/19 10:00 01/22/19 09:38 Vitamin B12 - PO 1,000 mcg DAILY [facility] Administration Docusate Sodium 200 mg 01/20/19 10:00 01/22/19 09:42 Colace - PO 200 mg DAILY [facility] Administration Furosemide 40 mg 01/19/19 10:00 01/22/19 09:38 Lasix - PO 40 mg DAILY [facility] Administration Ketorolac Tromethamine 10 mg 01/21/19 10:36 Toradol PO 01/26/19 10:44 Q8H PRN PAIN LEVEL 6-10 Losartan Potassium 100 mg 01/19/19 10:00 01/22/19 09:38 Cozaar - PO 100 mg DAILY [facility] Administration Metoprolol Tartrate 100 mg 01/19/19 10:00 01/22/19 09:39 Lopressor - PO 100 mg BID [facility] Administration Oxycodone HCl 5 mg 01/19/19 12:32 01/20/19 10:58 Roxicodone - PO 5 mg Q4H PRN Administration PAIN SCALE 6-10 Polyethylene Glycol 17 gm 01/20/19 10:00 01/22/19 09:43 Miralax (For Daily Use) - PO Not Given DAILY [facility] Potassium Chloride 20 meq 01/20/19 10:00 01/22/19 09:38 K-Dur - PO 20 meq DAILY [facility] Administration Prednisone 40 mg 01/19/19 10:00 01/22/19 09:38 Deltasone - PO 40 mg DAILY [facility] Administration Vital Signs (last) Temp Pulse Resp BP Pulse Ox 97.6 F 47 L 18 134/87 97 01/22/19 05:46 01/22/19 05:46 01/22/19 05:46 01/22/19 05:46 01/21/19 21:00 Intake and Output 01/20/19 01/21/19 01/22/19 23:59 23:59 23:59 Intake Total 500 1200 240 Output Total 400 700 250 Balance 100 500 -10 Intake: IV 0 0 saline lock 0 0 Oral 500 1200 240 Output: Urine 400 700 250 Void 400 700 250 Other: Voiding Method Urinal Urinal Urinal # Unmeasured Voids Void 2 2 Bowel Movement No No Weight 272 lb Height 5 ft 7 in Body Mass Index (BMI) 42.5 Laboratory 01/21/19 06:00 01/21/19 06:00 PT with INR 16.90 SEC (9.7-13.0) H 01/19/19 06:30 PTT (Actin FS) 41.8 SECONDS (25.2-36.5) H 01/19/19 06:30 Uric Acid 01/18: 7.6 IMAGING I personally reviewed all radiographs, CT, and other imaging of the left and right foot and ankle. They demonstrate no fractures, dislocations, or bony lesions. There are mild arthritic changes, but no acute processes seen. There are signs of old injuries on both ankles. ASSESSMENT AND PLAN Mr. Miller is a 58 year old male presenting with symptoms of left toe gout. We have reviewed the imaging and clinical findings in detail, as well as their potential implications. After appropriate informed discussion, we agreed on the following plan: - Pain Control - DVT Prophylaxis - WBAT B/L LE - Physical Therapy - Continue Medical Management of pain with medications for treatment of Gout. - Recommend Rheumatology follow up - No further orthopedic intervention at this time All questions were answered. Thank you for involving our team in the care of this patient. Please call our office with any questions. [phone].
[2019-01-22] MEDS: oxyCODONE HCL 5 MG TABLET PO PRN (14:43)
--- NOTE | 2019-01-22 16:13 | PN ---
Progress Note (short form) - Note Progress Note: ID consult dictated imp/reccd Hospital day #4 58 yo man with bilateral big toe pain - left worse then right originally treated with prednisone, colchicine added 01/21, allopurinol added no fevers continued mild erythema of the left big toe with pain radiating to the sole of his foot unable to weight bear on the left right foot pain/swelling have resolved +daily ETOH user no real signs of infection toe with mild erythema doubt cellulitis as cause of ongoing pain suspect this is slowly resolving gout Problem List - Problems (1) Foot pain, left Code(s): M79.672 - PAIN IN LEFT FOOT (2) Gout Code(s): M10.9 - GOUT, UNSPECIFIED Qualifiers: Gout site: foot Gout etiology: unspecified cause Chronicity: acute Laterality: unspecified laterality Qualified Code(s): M10.9 - Gout, unspecified
--- NOTE | 2019-01-22 21:07 | CONS ---
DATE OF CONSULTATION: DATE OF DICTATION: 01/22/2019 INFECTIOUS DISEASE CONSULTATION REQUESTING PHYSICIAN: Hospitalist Service. HISTORY OF PRESENT ILLNESS: This is a 58-year-old man with a past medical history of hemorrhagic CVA, status post craniotomy with left hemiparesis. Has a history of DVTs, on Eliquis, who comes to the emergency room on the with complaints of pain in both his ankles and feet for 4 days. He states that he had been sitting in a chair for a few days visiting his mother in the hospital, and that when he finally got up on his feet, he had severe pain in both his feet. He notes the pain was in his right foot, right great toe, and left great toe. He denies any fevers or chills, and otherwise feels well. PAST MEDICAL HISTORY: Notable for the hemorrhagic CVA. He has a history of hypertension, DVT, status post IVC filter on Eliquis and hyperlipidemia. SURGICAL HISTORY: Notable for craniotomy. SOCIAL HISTORY: He drinks alcohol 1 bottle of wine a day. He denies any prior history of gout, though he did have an episode 2 years ago where he had some right hip pain, then right knee pain, and right foot pain that was felt to be possible gout and resolved spontaneously. ALLERGIES: He has no known drug allergies. MEDICATION: At home include amlodipine, furosemide, losartan, metoprolol, pravastatin, polyethylene glycol, Colace, oxycodone, vitamin D, Eliquis, potassium. He has not been on allopurinol at home, and he is unsure if in 2 years if the diagnosis was gout, but he reports it spontaneously self resolved. HOSPITAL COURSE: He has been started on prednisone and colchicine as well as allopurinol. He has had complete resolution of symptoms of his right foot. His right foot no longer hurts. His left foot, he still notes he has pain in the big toe, and on the bottom of his feet when he attempts to stand up. He wears an orthotic for his left foot, but he reports that at home he is able to stand barefoot without his orthotic. REVIEW OF SYSTEMS: As per HPI. FAMILY HISTORY: Noncontributory. There is no history of any gout, or arthritis. PHYSICAL EXAMINATION: VITAL SIGNS: His temperature is 98.3, pulse of 58, blood pressure 129/77, respiratory rate 18. He is saturating 99%. HEENT: Normocephalic. Eyes are anicteric. NECK: Supple. LUNGS: Clear to auscultation. HEART: Regular rate and rhythm. ABDOMEN: Soft. EXTREMITIES: He has good pulses in both his feet. He has no erythema, swelling, or pain at the right foot at all. He has minimal pain of the left toe which is still slightly edematous, and he notes that on standing the sole of the left foot is still quite sore. LABORATORY: Notable for white count of 9.9, hemoglobin 11.9, platelets of 251, INR is 1.4, BUN and creatinine are 26 and 1.1. CRP is 4. He has had multiple imaging of his feet and ankles that show some arthritic changes, but there is no evidence of any acute fracture. He was seen by orthopedics, who felt he probably had gout. IMPRESSION: In summary, this is a 58-year-old man who I suspect probably has gout. He has elevated uric acid and he is frequent alcohol user. I doubt this is cellulitis, as he had bilateral toe discomfort, one of which is resolved, the other one appears improved. I suspect this is just a slowly resolving process. Would recommend rheumatology evaluation if possible . GINGER KOENIG M.D. [id number]
[2019-01-22] MEDS: ATORVASTATIN CA 10 MG TABLET (FP) PO SCH (21:56)
[2019-01-23 07:50] LABS: BASO % 0.2 % (0-2.0); EOS % 0.1 % (0-4.5); HEMATOCRIT 35.9 % (35.4-49); HEMOGLOBIN 12.1 GM/dL (11.7-16.9); LYMPH % 20.5 % (8-40); MCH 31.2 pg (25.7-33.7); MCHC 33.6 g/dl (32.0-35.9); MEAN CELL VOLUME 92.9 fl (80-96); MEAN PLT VOLUME 9.3 fl (7.5-11.1); MONO % 5.2 % (3.8-10.2); PLATELET COUNT 267 K/MM3 (134-434); RBC 3.87 M/mm3 (4.00-5.60); RDW 14.1 % (11.9-15.9); WHITE BLOOD COUNT 11.1 K/mm3 (4.0-10.0)
[2019-01-23 08:13] LABS: ANION GAP 7 MMOL/L (8-16); BLOOD UREA NITROGEN 23 mg/dL (7-18); CALCIUM 8.6 mg/dL (8.5-10.1); CHLORIDE 107 mmol/L (98-107); CO2 25 mmol/L (21-32); GLUCOSE,RANDOM 83 mg/dL (74-106); POTASSIUM 3.9 mmol/L (3.5-5.1); SODIUM 138 mmol/L (136-145)
[2019-01-23] MEDS ORDERED: PT OWN MED DRAWER 7, Y5N ONE (08:41)
[2019-01-23] MEDS: oxyCODONE HCL 5 MG TABLET PO PRN (09:17)
[2019-01-23] MEDS: DOCUSATE SODIUM 100 MG CAPSULE (FP) PO SCH (09:19)
[2019-01-23] MEDS: predniSONE 20 MG TABLET (UD) PO SCH (09:21)
[2019-01-23] MEDS: FUROSEMIDE 40 MG TABLET (FP) PO SCH (09:22)
[2019-01-23] MEDS: CHOLECALCIFEROL (VITAMIN D3) 1,000 UNIT TABLET (FP) PO SCH (09:22)
[2019-01-23] MEDS: POTASSIUM CHLORIDE TABS 20 MEQ TABLET.ER (FP) PO SCH (09:22)
[2019-01-23] MEDS: COLCHICINE 0.6 MG TABLET (FP) PO SCH (09:22)
[2019-01-23] MEDS: APIXABAN 2.5 MG TABLET PO SCH (09:23)
[2019-01-23] MEDS: ALLOPURINOL 100 MG TABLET (FP) PO SCH (09:23)
[2019-01-23] MEDS: CYANOCOBALAMIN 1,000 MCG TABLET (FP) PO SCH (09:24)
[2019-01-23] MEDS: LOSARTAN POTASSIUM 50 MG TABLET (FP) PO SCH (09:30)
[2019-01-23] MEDS: METOPROLOL TARTRATE 50 MG TABLET (FP) PO SCH (09:30)
[2019-01-23] MEDS: amLODIPine BESYLATE 10 MG TABLET (FP) PO SCH (09:30)
[2019-01-23] MEDS: POLYETHYLENE GLYCOL 3350 119 GM BTL PO SCH (09:31)
[2019-01-23] MEDS ORDERED: oxyCODONE HCL 5 MG TABLET PO PRN (09:33)
[2019-01-23 09:37] VITALS: BP 134/75; PULSE 64; TEMP 98.5
== END 2019-01-23 13:00 | DRG 554 ==
LOC: JER 18:16 → JERBED 21:25 → OBSVTOIN 22:44 → J7W 01-19 00:03
PROVIDERS: ADMIT Internal Medicine; ATTEND Internal Medicine
DX: M10.9 Gout, unspecified (principal); Z68.41 Body mass index [BMI] 40.0-44.9, adult; I82.512 Chronic embolism and thrombosis of left femoral vein; I69.354 Hemiplegia and hemiparesis following cerebral infarction affecting left non-dominant side; E66.01 Morbid (severe) obesity due to excess calories; I10 Essential (primary) hypertension; M06.4 Inflammatory polyarthropathy; Z79.01 Long term (current) use of anticoagulants; E78.5 Hyperlipidemia, unspecified; I87.8 Other specified disorders of veins; M71.21 Synovial cyst of popliteal space [Baker], right knee; G89.29 Other chronic pain; R29.810 Facial weakness; F10.10 Alcohol abuse, uncomplicated
CPT/HCPCS: 36415; 73610-TC-RT-FY; 73630-TC-LT; 73630-TC-RT-FY; 80048; 80053; 83735; 84100; 84550; 85025; 85610; 85730; 86140; 93005; 93010; 93970-TC; 97116-GP; 97162-GP; 99283-25; G0378

== ENCOUNTER 2020-04-28 16:17 | Inpatient (IN) | payer OTHER ==
--- NOTE | 2020-04-28 16:53 | PDOC ---
History of Present Illness - General Chief Complaint: Pain Stated Complaint: BACK PAIN Time Seen by Provider: 04/28/20 16:52 - History of Present Illness Initial Comments: 04/28/20 18:21 59 y/o M hx of CVA with residual left sided weakness, dvt s/p ivc filter on eloquis, HTN, HLD presents to the ED with complaint of left sided pain after fall 4 days ago.Pt was ambulating with assistance of a cane when he tripped on a rug and fell on his left side. pt denies any preceding shortness of breath, chest pain, nausea, vomiting prior to or after his fall. PMHx: as noted above ROS: as noted SHx: Denies Etoh, IVDA, tobacco use Allergies: NKDA ROS: GENERAL/CONSTITUTIONAL: No fever or chills. No weakness. HEAD, EYES, EARS, NOSE AND THROAT: No change in vision. No ear pain or discharge. No sore throat. CARDIOVASCULAR: No chest pain or shortness of breath RESPIRATORY: No cough, wheezing, or hemoptysis. GASTROINTESTINAL: No nausea, vomiting, diarrhea or constipation. GENITOURINARY: No dysuria, frequency, or change in urination. MUSCULOSKELETAL: No joint or muscle swelling or pain. No neck or back pain. SKIN: No rash NEUROLOGIC: No headache, vertigo, loss of consciousness, or change in strength/sensation. ENDOCRINE: No increased thirst. No abnormal weight change HEMATOLOGIC/LYMPHATIC: No anemia, easy bleeding, or history of blood clots. ALLERGIC/IMMUNOLOGIC: No hives or skin allergy. PE: GENERAL: Awake, alert, and fully oriented, in no acute distress HEAD: No signs of trauma, normocephalic, atraumatic EYES: PERRLA, EOMI, sclera anicteric, conjunctiva clear ENT: Auricles normal inspection, hearing grossly normal, nares patent, oropharynx clear without exudates. Moist mucosa NECK: Normal ROM, supple, no lymphadenopathy, JVD, or masses LUNGS: No distress, speaks full sentences, ttp of left ribs in mid-axillary line. no ecchymoses appreciated. HEART: Regular rate and rhythm, normal S1 and S2, no murmurs, rubs or gallops, peripheral pulses normal and equal bilaterally. ABDOMEN: Soft, nontender, normoactive bowel sounds. No guarding, no rebound. No masses EXTREMITIES : left sided weakness. foot drop(left foot). stasis dermatitis LLE NEUROLOGICAL: Cranial nerves II through XII grossly intact. Normal speech, left sided weakness, SKIN: Warm, Dry, normal turgor, no rashes or lesions noted 04/28/20 18:39 Past History - Medical History Allergies/Adverse Reactions: Allergies Allergy/AdvReac Type Severity Reaction Status Date / Time No Known Allergies Allergy Verified 04/28/20 16:42 Home Medications: Ambulatory Orders Amlodipine Besylate 10 mg PO DAILY 07/22/17 Furosemide [Lasix] 40 mg PO DAILY 07/22/17 Losartan Potassium 100 mg PO DAILY 07/22/17 Metoprolol Tartrate 100 mg PO BID 07/22/17 Pravastatin Sodium 40 mg PO HS 07/22/17 Apixaban [Eliquis] 2.5 mg PO BID #1 tablet 08/18/17 traMADol HCL [Ultram -] 50 mg PO Q6H PRN tablet 05/01/20 Cardiac Disorders: Yes CVA: Yes (01/2011, 07/2017 left arm weakness) COPD: No HTN: Yes Hypercholesterolemia: Yes - Surgical History Neurologic Surgery: Yes (CRANIOTOMY 2010) - Immunization History Immunization Up to Date: Yes - Psycho-Social/Smoking History Smoking History: Never smoked Have you smoked in the past 12 months: No - Substance Abuse Hx (Audit-C & DAST Scrn) How often the patient has a drink containing alcohol: Never Score: In Men: 4 or > Positive; In Women: 3 or > Positive: 0 Screen Result (Pos requires Nsg. Audit-10AR): Negative In the last yr the pt used illegal drug/Rx for NonMed reason: No Score: Yes response is considered Positive: 0 Screen Result (Positive result requires Nsg. DAST-10): Negative *Physical Exam - Vital Signs Last Vital Signs Temp Pulse Resp BP Pulse Ox 98.3 F 71 20 146/91 97 04/28/20 16:42 04/28/20 16:42 04/28/20 16:42 04/28/20 16:42 04/28/20 16:42 ED Treatment Course - LABORATORY CBC & Chemistry Diagram: 05/01/20 08:00 05/01/20 08:00 Medical Decision Making - Medical Decision Making 04/28/20 19:22 59 y/o M hx of CVA with residual left sided weakness, dvt s/p ivc filter on eloquis, HTN, HLD presents to the ED with complaint of left sided pain after fall 4 days ago.Pt was ambulating with assistance of a cane when he tripped on a rug and fell on his left side. ddx: fracture vs msk strain meds: lidocaine patch,flexaril. CXR and Rib series acute left 8th fracture no gross pneumothorax or pleural fluid 04/28/20 19:23 04/28/20 19:53 pt given toradol, reports only modest improvements in pain has residual left sided weakness and some difficulties with ambulation 04/28/20 20:12 Will give perocet and observe in ED for improvement pt reporting increased worries about pain and getting around at home will reassess after percocet. 04/28/20 22:38 Pt pain not adequately controlled, pt with significant comorbidities, ressidual left sided weakness and has had increased difficulties at home over last 4 days. Given spirometer and counselled on how to use. Admitted 06/09/20 12:17 Discharge - Discharge Information Problems reviewed: Yes Clinical Impression/Diagnosis: Morbid obesity with BMI of 40.0-44.9, adult, Stasis dermatitis of left lower extremity due to peripheral venous hypertension, Left rib fracture, Weakness of left side of body Condition: Stable [facility]position: [facility] - Follow up/Referral - Patient Discharge Instructions - Post Discharge Activity
[2020-04-28] MEDS ORDERED: LIDOCAINE 5% TOPICAL PATCH TP ONE (17:36)
[2020-04-28] MEDS ORDERED: CYCLOBENZAPRINE HCL 10 MG TABLET (FP) PO ONE (17:36)
[2020-04-28] MEDS ORDERED: LIDOCAINE 5% TOPICAL PATCH ONE (17:46)
[2020-04-28] MEDS ORDERED: CYCLOBENZAPRINE HCL 10 MG TABLET (FP) ONE (17:46)
--- NOTE | 2020-04-28 18:35 | PDOC ---
Documentation entered by Jerrell Rosales SCRIBE, acting as scribe for Oksana Archer MD. Oksana Archer MD: This documentation has been prepared by the Rosalio julien Xhesika, SCRIBE, under my direction and personally reviewed by me in its entirety. I confirm that the documentation accurately reflects all work, treatment, procedures, and medical decision making performed by me. Attending Attestation - Resident Resident Name: TavonJoshua - ED Attending Attestation I have performed the following: I have examined & evaluated the patient, The case was reviewed & discussed with the resident, I agree w/resident's findings & plan, Exceptions are as noted - HPI HPI: 04/28/20 17:37 The patient is a 59y/O M with a PMH of hemorrhagic CVA s/p craniotomy with L sided deficits, DVT s/p IVC on eliquis, HTN, and HLD who presents to the ED with L sided rib pain s/p fall. The patient denies chest pain, shortness of breath, headache and dizziness.Denies fever, chills, nausea, vomit, diarrhea and constipation. Denies dysuria, frequency, urgency and hematuria. Allergies: NKDA PCP: Dr. Hernandez - Physicial Exam PE: 04/28/20 18:22 Obese 59 yo male p/w ribcage pain s/p fall head ncat neck supple lungs no crackles cvs [id number] abdomen protuberant extremities chronic venous stasis,edema skin no lacerations torso no area of ecchymosis but tenderenss to left ribs neuro axox3, chronic left sided weakness (due to previous stroke) 04/28/20 18:32 - Medical Decision Making 04/28/20 19:21 radiograph revelas acute fracture of 8th rib plan :incentive spirometer,pain meds 04/28/20 21:52 Discharge - Discharge Information Problems reviewed: Yes Clinical Impression/Diagnosis: Morbid obesity with BMI of 40.0-44.9, adult, Stasis dermatitis of left lower extremity due to peripheral venous hypertension, Left rib fracture, Weakness of left side of body Condition: Stable - Additional Discharge Information - Follow up/Referral - Patient Discharge Instructions - Post Discharge Activity
[2020-04-28] MEDS ORDERED: KETOROLAC TROMETHAMINE 30 MG/1 ML VIAL IVPUSH ONE (19:21)
[2020-04-28] MEDS ORDERED: KETOROLAC TROMETHAMINE 30 MG/1 ML VIAL IM ONE (19:25)
[2020-04-28] MEDS ORDERED: KETOROLAC TROMETHAMINE 30 MG/1 ML VIAL ONE (19:32)
[2020-04-28] MEDS ORDERED: LIDOCAINE PATCH REMOVAL MC SCH (22:00)
[2020-04-28] MEDS ORDERED: LACTATED RINGERS SOLUTION 1,000 ML IV STA (23:42)
[2020-04-28] MEDS ORDERED: traMADol HCL 50 MG TABLET PO PRN (23:53)
--- NOTE | 2020-04-29 00:18 | PN ---
Teaching Attending Note Name of Resident: Joyce Tucker ATTENDING PHYSICIAN STATEMENT I saw and evaluated the patient. I reviewed the resident's note and discussed the case with the resident. I agree with the resident's findings and plan as documented. SUBJECTIVE: 59 y/o M hx of CVA with residual left sided weakness, dvt s/p ivc filter on eloquis, HTN, HLD presented to ED with left sided lower chest/ rib pain after he fell down 4 days ago. he was walking with the and he tripped and fell on his left side. No dizziness or syncopal episode. No head trauma. ROS: negative except as above. After coming to ED he was found to have left 8th rib fracture so endorsed for admission OBJECTIVE: Last Vital Signs Temp Pulse Resp BP Pulse Ox 98.3 F 71 20 146/91 97 04/28/20 16:42 04/28/20 16:42 04/28/20 16:42 04/28/20 16:42 04/28/20 16:42 GENERAL: Obese Awake, alert, and fully oriented, not in distress HEAD: Normal with no signs of trauma. EYES: Pupils equal, round and reactive to light, extraocular movements intact, sclera anicteric, conjunctiva clear. EARS, NOSE, THROAT: Oropharynx clear without exudates. Moist mucous membranes. NECK: No JVD, or masses. LUNGS: Breath sounds equal, clear to auscultation bilaterally. No wheezes, and no crackles. No accessory muscle use. Left sided rib tenderness lower ribs - 8Th HEART: RRR normal S1 and S2 without murmur, rub or gallop. ABDOMEN: Obese Soft, not distended, MUSCULOSKELETAL: Normal range of motion at all joints. No CVA tenderness. UPPER EXTREMITIES: 2+ pulses, warm, well-perfused. No peripheral edema. LOWER EXTREMITIES: 2+ pulses, warm, well-perfused. No calf tenderness. Left LE chronic skin changes of venous stasis - black discoloration with non pitting edema NEUROLOGICAL: Cranial nerves II-XII intact.left sided residual weakness, sensation intact PSYCHIATRIC: Cooperative. Good eye contact. Appropriate mood and affect. SKIN: Warm, dry, normal turgor, no rashes or lesions noted. ASSESSMENT AND PLAN: Left 8th rib Fracture hx of CVA with residual left sided weakness, dvt s/p ivc filter on eloquis, HTN, HLD Morbid obesity Admit to floor IV hydration Analgesia PRN tylenol PT/ rehab incentive spirometry resume home meds DVT ppx HTN- mild elevated resume home meds CBC, CMP, EKG, mg,phos,cpk, troponin
[2020-04-29] MEDS ORDERED: traMADol HCL 50 MG TABLET ONE ×2 (00:32→12:39)
[2020-04-29 02:50] LABS: HEMATOCRIT 34.5 % (35.4-49); HEMOGLOBIN 11.2 GM/dL (11.7-16.9); MCHC 32.4 g/dl (32.0-35.9); MEAN CELL VOLUME 98.6 fl (80-96); MEAN PLT VOLUME 9.2 fl (7.5-11.1); PLATELET COUNT 166 K/MM3 (134-434); RDW 15.5 % (11.9-15.9); WHITE BLOOD COUNT 6.3 K/mm3 (4.0-10.0)
[2020-04-29 03:15] LABS: ALBUMIN 3.5 g/dl (3.4-5.0); BILIRUBIN,TOTAL 0.7 mg/dL (0.2-1); BLOOD UREA NITROGEN 17.4 mg/dL (7-18); CREATININE 1.5 mg/dL (0.55-1.3); MAGNESIUM 2.1 mg/dL (1.8-2.4); PHOSPHOROUS 3.8 mg/dL (2.5-4.9); TOT PROT 6.6 g/dl (6.4-8.2)
--- NOTE | 2020-04-29 04:53 | HP ---
CHIEF COMPLAINT: left sided rib pain PCP: Dr. 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 Pt reports ambulating with assistance (uses cane at baseline) in his bed room when he tripped on his rug and fell to his L side. In trying to break his fall, the pt's L chest hit a table in the room on his way to falling down. Pt called EMS to help him up, but decided not to go to an ED at the time. Denies head trauma, LOC, dizzing, trauma to any other regions of the body, bleeding, CP, SOB, dizziness, leg weakness (beyond baseline deficits), vision changes, new sensory changes, n/v, or fevers/chills. Also denies the presence of bruising or swelling in area of injury. The next morning pt reports experiencing excruciating sharp, non-radiating L sided rib pain. Aggravated to 10/10 pain with sudden movements of his body. Improves to 2/10 pain at rest, without movement. He did not try any pain medications at home. Pt decided to come to the hospital after the pain with movement remained persistent and did not improve over the weekend. Pt reports that despite his L sided residual deficits, he does not fall often while ambulating (with his cane) - no falls this year; reports only "a handful" of mechanical falls since his CVA. ER course was notable for: (1)Acute fracture of L 8th rib along posterior axillary line, mildly displaced; no gross pneumothorax or pleural fluid present (2)Attempted pain control via - lidocaine patch; toradol 30 mg IV; percocet 3- 325 po; flexeril 10 mg po (3) Recent Travel: none PAST MEDICAL HISTORY: - As per HPI. Pt also with hx of gout. PAST SURGICAL HISTORY: - tonsillectomy as a child FAMILY HISTORY: - Father with prostate cancer Social History: Lives alone on the 2nd floor of a private home (6 steps to enter home; 12 steps to get to 2nd floor). Smoking: Denies tobacco smoking. Alcohol: Reports occasional EtOH use Drugs: None Allergies No Known Allergies Allergy (Verified 04/28/20 16:42) HOME MEDICATIONS: Home Medications Medication Instructions Recorded Amlodipine Besylate 10 mg PO DAILY 07/22/17 Furosemide [Lasix] 40 mg PO DAILY 07/22/17 Losartan Potassium 100 mg PO DAILY 07/22/17 Metoprolol Tartrate 100 mg PO BID 07/22/17 Pravastatin Sodium 40 mg PO HS 07/22/17 Docusate Sodium [Colace -] 200 mg PO DAILY #60 tab 07/27/17 Cholecalciferol (Vitamin D3) 2,000 unit PO DAILY 08/15/17 [Vitamin D3 -] Apixaban [Eliquis] 2.5 mg PO BID #1 tablet 08/18/17 Cyanocobalamin [Vitamin B12 -] 500 mcg PO WEEKLY 01/18/19 Colchicine [Colcrys] 0.6 mg PO DAILY #30 tablet 01/22/19 Oxycodone HCl/Acetaminophen 1 tab PO HS PRN #6 tablet MDD 1 tab 04/28/20 [Percocet 5-325 mg Tablet] REVIEW OF SYSTEMS As per HPI. PHYSICAL EXAMINATION Vital Signs - 24 hr 04/28/20 04/28/20 04/29/20 16:42 23:45 00:30 Temperature 98.3 F Pulse Rate 71 Pulse Rate [ 62 Apical] Respiratory 20 20 Rate Blood Pressure 146/91 Blood Pressure 128/62 [Left Arm] O2 Sat by Pulse 97 98 98 Oximetry (%) GENERAL: Awake, alert, and fully oriented, in no acute distress. Mild discomfort with any movement of torso. Pt is obese. HEAD: NCAT EYES: PERRLA, EOMI, sclera white, conjunctiva clear. EARS, NOSE, THROAT: oropharynx clear without exudates. Dry mucous membranes. NECK: Normal range of motion, supple. Trachea midline. LUNGS: Breath sounds equal but with poor inspiritory effort, pt with L sided rib pain with deep breaths. Clear to auscultation bilaterally. No wheezes, and no crackles. No accessory muscle use. HEART: Regular rate and rhythm, normal S1 and S2 without murmur, rub or gallop. ABDOMEN: Soft, nontender, not distended, +BS in all 4 quadrants MUSCULOSKELETAL: ROM of joints at baseline; pt with residual L sided deficit of upper and lower extremity. UPPER EXTREMITIES: 2+ pulses, warm, well-perfused. Pt with spasiticity in L UE; L hand is dry as pt's L hand is usually in a spastic fist LOWER EXTREMITIES: 2+ pulses, warm, well-perfused. No calf tenderness. Pt with non-pitting edema and L LE discoloration consistent with venous stasis NEUROLOGICAL: Normal speech. Gait not assessed PSYCHIATRIC: Cooperative. Good eye contact. Appropriate mood and affect. 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 #Rib Fracture CXR evidence of fracture - analgesia with tylenol 650 q6h prn for moderate to severe pain - IV hydration - LR 1 L bolus - incentive spirometry - check CPK, as pt is s/p fall - check routine labs (CBC, CMP, Mg, Phos) #Hx of DVT s/p IVC filter - continue home eliquis PO 2.5 mg BID; check with pt pharmacy to confirm dosing (closed ovn, opens at 8 am) #Hx of HTN - can start pt on home antihypertensives; check with pt pharmacy to confirms meds + dosing(closed ovn, opens at 8 am) #Hx of HLD - can start pt on home statin check with pt pharmacy to confirms meds + dosing(closed ovn, opens at 8 am) #DVT PPx - home eliquis #FEN -F - LR 1L bolus -E - monitor CMP; replete lytes PRN -N - low Na diet #Dispo Admit to floors for observation Visit type - Emergency Visit Emergency Visit: Yes ED Registration Date: 04/28/20 Care time: The patient presented to the Emergency Department on the above date and was hospitalized for further evaluation of their emergent condition. - New Patient This patient is new to me today: Yes Date on this admission: 04/29/20 - Critical Care Critical Care patient: No ATTENDING PHYSICIAN STATEMENT I saw and evaluated the patient. I reviewed the resident's note and discussed the case with the resident. I agree with the resident's findings and plan as documented. SUBJECTIVE: OBJECTIVE: ASSESSMENT AND PLAN:
[2020-04-29] MEDS ORDERED: ACETAMINOPHEN 325 MG TABLET (FP) PO PRN (05:28)
--- NOTE | 2020-04-29 09:14 | EKG ---
Test Reason : Blood Pressure : / mmHG Vent. Rate : 055 BPM Atrial Rate : 055 BPM P-R Int : 170 ms QRS Dur : 092 ms QT Int : 468 ms P-R-T Axes : 015 010 017 degrees QTc Int : 447 ms SINUS BRADYCARDIA OTHERWISE NORMAL ECG WHEN COMPARED WITH ECG OF 18-JAN-2019 22:18, NO SIGNIFICANT CHANGE WAS FOUND Confirmed by MD MELANY, MAGALYS ([id number]) on 04/29/2020 9:14:11 AM Referred By: Confirmed By:MAGALYS MOSLEY MD
[2020-04-29] MEDS ORDERED: APIXABAN 2.5 MG TABLET ONE (10:03)
[2020-04-29] MEDS: APIXABAN 2.5 MG TABLET PO SCH ×2 (10:08→21:39)
[2020-04-29] MEDS ORDERED: traMADol HCL 50 MG TABLET PO ONE (12:06)
--- NOTE | 2020-04-29 14:05 | PN ---
Teaching Attending Note Name of Resident: Maged Layton ATTENDING PHYSICIAN STATEMENT I saw and evaluated the patient. I reviewed the resident's note and discussed the case with the resident. I agree with the resident's findings and plan as documented. SUBJECTIVE: L sided CP improving. No SOB/cough/sputum/hemoptysis/fever/chills. OBJECTIVE: Afebrile, Hemodynamically Stable. Last Vital Signs Temp Pulse Resp BP Pulse Ox 98.3 F 80 20 141/76 98 04/29/20 09:13 04/29/20 09:13 04/29/20 09:13 04/29/20 09:13 04/29/20 10:39 HEENT - Atraumatic, Normocephalic. Heart - S1, S2, RRR Lungs - clear to auscultation Abdomen - Soft, non-tender. High BMI. Bowel Sounds normal. Extremities - LLE edema/venous stasis skin changes (chronic secondary to prior DVT), no calf tenderness Neuro - AAO x 3. L sided weakness/spasticity (chronic) Laboratory Results - last 24 hr 04/29/20 04/29/20 02:36 02:36 WBC 6.3 RBC 3.50 L Hgb 11.2 L Hct 34.5 L MCV 98.6 H MCH 32.0 MCHC 32.4 RDW 15.5 Plt Count 166 D MPV 9.2 Sodium 142 Potassium 4.0 Chloride 107 Carbon Dioxide 26 Anion Gap 8 BUN 17.4 Creatinine 1.5 H Est GFR (CKD-EPI)AfAm 57.41 Est GFR (CKD-EPI)NonAf 49.53 Random Glucose 68 L Calcium 9.0 Phosphorus 3.8 Magnesium 2.1 Total Bilirubin 0.7 AST 19 ALT 18 Alkaline Phosphatase 78 Creatine Kinase 56 Total Protein 6.6 Albumin 3.5 Current Medications Generic Name Dose Route Start Last Admin Trade Name Freq PRN Reason Stop Dose Admin Acetaminophen 650 mg 04/29/20 05:28 Tylenol - PO Q6H PRN PAIN LEVEL 6-10 Apixaban 2.5 mg 04/29/20 10:00 04/29/20 10:08 Eliquis - PO 2.5 mg BID PARIS Administration Home Medications Medication Instructions Recorded Amlodipine Besylate 10 mg PO DAILY 07/22/17 Furosemide [Lasix] 40 mg PO DAILY 07/22/17 Losartan Potassium 100 mg PO DAILY 07/22/17 Metoprolol Tartrate 100 mg PO BID 07/22/17 Pravastatin Sodium 40 mg PO HS 07/22/17 Docusate Sodium [Colace -] 200 mg PO DAILY #60 tab 07/27/17 Cholecalciferol (Vitamin D3) 2,000 unit PO DAILY 08/15/17 [Vitamin D3 -] Apixaban [Eliquis] 2.5 mg PO BID #1 tablet 08/18/17 Cyanocobalamin [Vitamin B12 -] 500 mcg PO WEEKLY 01/18/19 Colchicine [Colcrys] 0.6 mg PO DAILY #30 tablet 01/22/19 Oxycodone HCl/Acetaminophen 1 tab PO HS PRN #6 tablet MDD 1 tab 04/28/20 [Percocet 5-325 mg Tablet] ASSESSMENT/PLAN: 59 year old male with 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 1. Acute 8th Rib Fracture CXR - Acute fracture of L 8th rib along posterior axillary line, mildly displaced; no gross pneumothorax or pleural fluid present Trial of Tramadol Incentive Spirometry PT eval. Discharge if mobilizing safely. 2. Hx of DVT s/p IVC filter Continue Eliquis - will confirm home 2.5mg BID dosing. 3. HTN - Continue Losartan, Metoprolol, Amlodipine. 4. HLD - continue Pravastatin 5. Macrocytosis - follow B12/Folate. 6. PAMELA ?CKD - Creat 1.5 - will need to find out baseline Creat from PCP and repeat labs after overnight hydration before discharge. DVT Px - on Eliquis.
[2020-04-29 15:31] LABS: CALCIUM 9.4 mg/dL (8.5-10.1); CREATININE 1.7 mg/dL (0.55-1.3); POTASSIUM 3.8 mmol/L (3.5-5.1)
[2020-04-29] MEDS ORDERED: SODIUM CHLORIDE 0.9% 1000 ML INFUS.BAG IV ONE (16:29)
[2020-04-29 16:37] VITALS: BMI 44.4
[2020-04-29] MEDS: SODIUM CHLORIDE 1,000 ML IV SCH (18:43)
--- NOTE | 2020-04-29 21:37 | PN ---
Physical Exam: SUBJECTIVE: Patient seen and examined at bedside. The patient endorses that any sudden movements or deep breaths exacerbates pain localized to the left mid axillary line. OBJECTIVE: Vital Signs Period Temp Pulse Resp BP Sys/Posey Pulse Ox Last 24 Hr 98 F-98.5 F 62-91 18-20 128-141/62-95 96-100 GENERAL: The patient is awake, alert, and fully oriented, in no acute distress. LUNGS: Breath sounds equal, clear to auscultation bilaterally, no wheezes, no crackles, no accessory muscle use. HEART: Regular rate and rhythm, S1, S2 without murmur, rub or gallop. ABDOMEN: Soft, nontender, nondistended, normoactive bowel sounds, no guarding, no rebound, no hepatosplenomegaly, no masses. PSYCH: Normal mood, normal affect. SKIN: L LE noted for venous congestion Laboratory Results - last 24 hr 04/29/20 04/29/20 04/29/20 02:36 02:36 13:37 WBC 6.3 RBC 3.50 L Hgb 11.2 L Hct 34.5 L MCV 98.6 H MCH 32.0 MCHC 32.4 RDW 15.5 Plt Count 166 D MPV 9.2 Sodium 142 138 Potassium 4.0 3.8 Chloride 107 105 Carbon Dioxide 26 23 Anion Gap 8 10 BUN 17.4 22.0 H Creatinine 1.5 H 1.7 H Est GFR (CKD-EPI)AfAm 57.41 49.35 Est GFR (CKD-EPI)NonAf 49.53 42.58 Random Glucose 68 L 115 H Calcium 9.0 9.4 Phosphorus 3.8 Magnesium 2.1 Total Bilirubin 0.7 AST 19 ALT 18 Alkaline Phosphatase 78 Creatine Kinase 56 Total Protein 6.6 Albumin 3.5 Vitamin B12 Serum Folate 04/29/20 13:37 WBC RBC Hgb Hct MCV MCH MCHC RDW Plt Count MPV Sodium Potassium Chloride Carbon Dioxide Anion Gap BUN Creatinine Est GFR (CKD-EPI)AfAm Est GFR (CKD-EPI)NonAf Random Glucose Calcium Phosphorus Magnesium Total Bilirubin AST ALT Alkaline Phosphatase Creatine Kinase Total Protein Albumin Vitamin B12 346 Serum Folate 7 Active Medications Generic Name Dose Route Start Last Admin Trade Name Freq PRN Reason Stop Dose Admin Acetaminophen 650 mg 04/29/20 05:28 Tylenol - PO Q6H PRN PAIN LEVEL 6-10 Apixaban 2.5 mg 04/29/20 10:00 04/29/20 10:08 Eliquis - PO 2.5 mg BID PARIS Administration Sodium Chloride 1,000 mls @ 75 mls/hr 04/29/20 18:00 04/29/20 18:43 Normal Saline - IV Not Given ASDIR PARIS ASSESSMENT/PLAN: Paul is a 59m w h/o of hemorrhagic CVA (2010) s/p craniotomy with residual left sided weakness and spasticity, Hx DVT (2010) s/p IVC filter on Eliquis, HTN, and HLD. Patient was admitted to the hospital for L sided 8th rib fracture mid axillary line. # rib fracture - CXR reveals a fracture of the L 8th rib along posterior axillary line - No appreciation of pneumothorax or pleuritic involvement - Pain management - tramadol reveals subjective improvement of pain - Patient placed on incentive erick - Physical Therapy consulted for mobility due to intractable pain and multiple co morbidities as well as living alone at home - PT suggests SNF pending dispo, patient agrees # HTN - Cont home medications #HLD - cont home medications #Macrocytosis - MCV mildly elevated at 98 - pending b12 and folate levels #PAMELA secondary to a Cr of 1.5 - Patient is at baseline per Dr. Hernandez - will trend BUN/Cr # History of multiple DVT s/p IVC filter - Patient is on maintenance dose of eliquis 2.[address] Hernandez Visit type - Emergency Visit Emergency Visit: Yes ED Registration Date: 04/28/20 Care time: The patient presented to the Emergency Department on the above date and was hospitalized for further evaluation of their emergent condition. - New Patient This patient is new to me today: Yes Date on this admission: 04/29/20 - Critical Care Critical Care patient: No - Discharge Referral Referred to [facility] Med P.C.: No ATTENDING PHYSICIAN STATEMENT I saw and evaluated the patient. I reviewed the resident's note and discussed the case with the resident. I agree with the resident's findings and plan as documented. SUBJECTIVE: OBJECTIVE: ASSESSMENT AND PLAN:
[2020-04-30 08:35] LABS: HEMATOCRIT 36.5 % (35.4-49); HEMOGLOBIN 12.1 GM/dL (11.7-16.9); MCH 32.1 pg (25.7-33.7); MCHC 33.1 g/dl (32.0-35.9); MEAN PLT VOLUME 8.7 fl (7.5-11.1); PLATELET COUNT 152 K/MM3 (134-434); RBC 3.76 M/mm3 (4.00-5.60); RDW 15.7 % (11.9-15.9); WHITE BLOOD COUNT 5.7 K/mm3 (4.0-10.0)
[2020-04-30 09:07] LABS: BLOOD UREA NITROGEN 18.7 mg/dL (7-18); CALCIUM 9.1 mg/dL (8.5-10.1); CREATININE 1.2 mg/dL (0.55-1.3); PHOSPHOROUS 3.3 mg/dL (2.5-4.9); POTASSIUM 3.8 mmol/L (3.5-5.1)
[2020-04-30] MEDS: SODIUM CHLORIDE 1,000 ML IV SCH (09:21)
[2020-04-30] MEDS: amLODIPine BESYLATE 10 MG TABLET (FP) PO SCH (09:22)
[2020-04-30] MEDS: APIXABAN 2.5 MG TABLET PO SCH ×2 (09:22→22:40)
[2020-04-30] MEDS: traMADol HCL 50 MG TABLET PO PRN ×2 (13:50→22:40)
--- NOTE | 2020-04-30 15:52 | PN ---
Teaching Attending Note Name of Resident: Maged Layton ATTENDING PHYSICIAN STATEMENT I saw and evaluated the patient. I reviewed the resident's note and discussed the case with the resident. I agree with the resident's findings and plan as documented. SUBJECTIVE: L sided CP improving with Tramadol. No SOB/cough/sputum/hemoptysis/fever/chills. OBJECTIVE: Afebrile, Hemodynamically Stable. Last Vital Signs Temp Pulse Resp BP Pulse Ox 98.3 F 79 20 144/90 98 04/30/20 14:22 04/30/20 14:22 04/30/20 14:22 04/30/20 14:22 04/30/20 14:22 Heart - S1, S2, RRR Lungs - clear to auscultation Abdomen - Soft, non-tender. High BMI. Bowel Sounds normal. Extremities - LLE edema/venous stasis skin changes (chronic secondary to prior DVT), no calf tenderness Neuro - AAO x 3. Mild L sided weakness/spasticity (chronic) Laboratory Results - last 24 hr 04/29/20 04/30/20 04/30/20 00:36 07:58 07:58 WBC 5.7 RBC 3.76 L Hgb 12.1 Hct 36.5 MCV 97.0 H MCH 32.1 MCHC 33.1 RDW 15.7 Plt Count 152 MPV 8.7 Sodium 140 Potassium 3.8 Chloride 107 Carbon Dioxide 24 Anion Gap 9 BUN 18.7 H Creatinine 1.2 Est GFR (CKD-EPI)AfAm 75.19 Est GFR (CKD-EPI)NonAf 64.87 Random Glucose 81 Calcium 9.1 Phosphorus 3.3 Magnesium 2.0 COVID-19 (RANJAN) Not detected Current Medications Generic Name Dose Route Start Last Admin Trade Name Freq PRN Reason Stop Dose Admin Acetaminophen 650 mg 04/29/20 05:28 04/30/20 06:25 Tylenol - PO 650 mg Q6H PRN Administration PAIN LEVEL 4-6 Amlodipine Besylate 10 mg 04/30/20 10:00 04/30/20 09:22 Norvasc - PO 10 mg DAILY PARIS Administration Apixaban 2.5 mg 04/29/20 10:00 04/30/20 09:22 Eliquis - PO 2.5 mg BID PAR[place] Administration Atorvastatin Calcium 10 mg 04/30/20 22:00 Lipitor - PO HS PARIS Cholecalciferol 2,000 unit 04/30/20 16:00 04/30/20 16:34 Vitamin D3 - PO 2,000 unit DAILY PAR[place] Administration Furosemide 40 mg 05/01/20 06:00 Lasix - PO DAILY@0600 PAR[place] Losartan Potassium 100 mg 04/30/20 16:00 04/30/20 16:34 Cozaar - PO 100 mg DAILY PAR[place] Administration Metoprolol Tartrate 100 mg 04/30/20 22:00 Lopressor - PO BID PARIS Tramadol HCl 50 mg 04/30/20 10:37 04/30/20 13:50 Ultram - PO 50 mg Q6H PRN Administration PAIN LEVEL 7-10 Home Medications Medication Instructions Recorded Amlodipine Besylate 10 mg PO DAILY 07/22/17 Furosemide [Lasix] 40 mg PO DAILY 07/22/17 Losartan Potassium 100 mg PO DAILY 07/22/17 Metoprolol Tartrate 100 mg PO BID 07/22/17 Pravastatin Sodium 40 mg PO HS 07/22/17 Cholecalciferol (Vitamin D3) 2,000 unit PO DAILY 08/15/17 [Vitamin D3 -] Apixaban [Eliquis] 2.5 mg PO BID #1 tablet 08/18/17 Oxycodone HCl/Acetaminophen 1 tab PO HS PRN #6 tablet MDD 1 tab 04/28/20 [Percocet 5-325 mg Tablet] ASSESSMENT/PLAN: 59 year old male with 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 1. Acute 8th Rib Fracture CXR - Acute fracture of L 8th rib along posterior axillary line, mildly displaced; no gross pneumothorax or pleural fluid present Incentive Spirometry PT evaluated - ambulatory dysfunction recommendation for SNF/Rehab. Medically clear for discharge to SNF/Rehab. 2. Hx of DVT s/p IVC filter Continue Eliquis - discussed with PCP who confirms home 2.5mg BID dosing. 3. HTN - Continue Losartan, Metoprolol, Amlodipine. 4. HLD - continue Pravastatin 5. Macrocytosis - B12/Folate levels normal. 6. PAMELA on CKD 3 - resolved, Creat down to 1.2 from 1.7. Lasix to be resumed in AM. DVT Px - on Eliquis. Dispo - awaiting authorization for SNF/Rehab.
[2020-04-30] MEDS ORDERED: FUROSEMIDE 40 MG TABLET (FP) PO SCH (16:00)
[2020-04-30] MEDS: CHOLECALCIFEROL (VIT D3) 1,000 UNIT (25 MCG) TABLET PO SCH (16:34)
[2020-04-30] MEDS: LOSARTAN POTASSIUM 50 MG TABLET (FP) PO SCH (16:34)
--- NOTE | 2020-04-30 18:18 | PN ---
Physical Exam: SUBJECTIVE: Patient seen and examined at bedside. Patient denies any acute overnight events. Patient reports improved pain with tramadol. Social work contacting SNF pending insurance authorization. OBJECTIVE: Vital Signs Period Temp Pulse Resp BP Sys/Posey Pulse Ox Last 24 Hr 98.3 F-98.5 F 66-82 18-20 139-151/86-95 96-98 GENERAL: The patient is awake, alert, and fully oriented, in no acute distress. HEAD: Normal with no signs of trauma. LUNGS: Breath sounds equal, clear to auscultation bilaterally, no wheezes, no crackles, no accessory muscle use. HEART: Regular rate and rhythm, S1, S2 without murmur, rub or gallop. ABDOMEN: Soft, nontender, nondistended, normoactive bowel sounds, no guarding, no rebound, no hepatosplenomegaly, no masses. Laboratory Results - last 24 hr 04/29/20 04/30/20 04/30/20 00:36 07:58 07:58 WBC 5.7 RBC 3.76 L Hgb 12.1 Hct 36.5 MCV 97.0 H MCH 32.1 MCHC 33.1 RDW 15.7 Plt Count 152 MPV 8.7 Sodium 140 Potassium 3.8 Chloride 107 Carbon Dioxide 24 Anion Gap 9 BUN 18.7 H Creatinine 1.2 Est GFR (CKD-EPI)AfAm 75.19 Est GFR (CKD-EPI)NonAf 64.87 Random Glucose 81 Calcium 9.1 Phosphorus 3.3 Magnesium 2.0 COVID-19 (RANJAN) Not detected Active Medications Generic Name Dose Route Start Last Admin Trade Name Freq PRN Reason Stop Dose Admin Acetaminophen 650 mg 04/29/20 05:28 04/30/20 06:25 Tylenol - PO 650 mg Q6H PRN Administration PAIN LEVEL 4-6 Amlodipine Besylate 10 mg 04/30/20 10:00 04/30/20 09:22 Norvasc - PO 10 mg DAILY PARIS Administration Apixaban 2.5 mg 04/29/20 10:00 04/30/20 09:22 Eliquis - PO 2.5 mg BID PARIS Administration Atorvastatin Calcium 10 mg 04/30/20 22:00 Lipitor - PO HS [facility] Cholecalciferol 2,000 unit 04/30/20 16:00 04/30/20 16:34 Vitamin D3 - PO 2,000 unit DAILY PARIS Administration Furosemide 40 mg 05/01/20 06:00 Lasix - PO DAILY@0600 PAR[place] Losartan Potassium 100 mg 04/30/20 16:00 04/30/20 16:34 Cozaar - PO 100 mg DAILY [place] Administration Metoprolol Tartrate 100 mg 04/30/20 22:00 Lopressor - PO BID PAR[place] Tramadol HCl 50 mg 04/30/20 10:37 04/30/20 13:50 Ultram - PO 50 mg Q6H PRN Administration PAIN LEVEL 7-10 ASSESSMENT/PLAN: Paul is a 59m w h/o of hemorrhagic CVA (2010) s/p craniotomy with residual left sided weakness and spasticity, Hx DVT (2010) s/p IVC filter on Eliquis, HTN, and HLD. Patient was admitted to the hospital for L sided 8th rib fracture mid axillary line. # rib fracture - CXR reveals a fracture of the L 8th rib along posterior axillary line - No appreciation of pneumothorax or pleuritic involvement - Pain management - tramadol reveals subjective improvement of pain - Patient placed on incentive erick - Physical Therapy consulted for mobility due to intractable pain and multiple co morbidities as well as living alone at home - PT suggests SNF pending dispo, patient agrees - Social work in contact with SNF [facility] pending insurance authorization. # HTN - Cont home medications #HLD - cont home medications #Macrocytosis - MCV mildly elevated at 98 - pending b12 and folate levels #PAMELA secondary to a Cr of 1.5 - Patient is at baseline per Dr. Hernandez - will trend BUN/Cr # History of multiple DVT s/p IVC filter - Patient is on maintenance dose of eliquis 2.[address] Hernandez Visit type - Emergency Visit Emergency Visit: Yes ED Registration Date: 04/28/20 Care time: The patient presented to the Emergency Department on the above date and was hospitalized for further evaluation of their emergent condition. - New Patient This patient is new to me today: No - Critical Care Critical Care patient: No - Discharge Referral Referred to [facility] Med P.C.: No ATTENDING PHYSICIAN STATEMENT I saw and evaluated the patient. I reviewed the resident's note and discussed the case with the resident. I agree with the resident's findings and plan as documented. SUBJECTIVE: OBJECTIVE: ASSESSMENT AND PLAN:
[2020-04-30] MEDS ORDERED: ATORVASTATIN CA 10 MG TABLET (FP) PO SCH (22:00)
[2020-04-30] MEDS ORDERED: APIXABAN 2.5 MG TABLET PO SCH (22:00)
[2020-04-30] MEDS: METOPROLOL TARTRATE 50 MG TABLET (FP) PO SCH (22:40)
[2020-05-01] MEDS ORDERED: FUROSEMIDE 40 MG TABLET (FP) PO SCH (06:00)
[2020-05-01 08:41] LABS: HEMATOCRIT 37.5 % (35.4-49); HEMOGLOBIN 12.2 GM/dL (11.7-16.9); MCH 31.7 pg (25.7-33.7); MCHC 32.6 g/dl (32.0-35.9); MEAN CELL VOLUME 97.3 fl (80-96); MEAN PLT VOLUME 8.5 fl (7.5-11.1); PLATELET COUNT 183 K/MM3 (134-434); RBC 3.85 M/mm3 (4.00-5.60); RDW 15.5 % (11.9-15.9); WHITE BLOOD COUNT 6.5 K/mm3 (4.0-10.0)
[2020-05-01 09:01] LABS: BLOOD UREA NITROGEN 16.6 mg/dL (7-18); CREATININE 1.3 mg/dL (0.55-1.3); MAGNESIUM 1.9 mg/dL (1.8-2.4); PHOSPHOROUS 3.9 mg/dL (2.5-4.9); POTASSIUM 3.8 mmol/L (3.5-5.1)
[2020-05-01] MEDS: traMADol HCL 50 MG TABLET PO PRN ×2 (09:34→16:42)
[2020-05-01] MEDS: METOPROLOL TARTRATE 50 MG TABLET (FP) PO SCH (09:35)
[2020-05-01] MEDS: APIXABAN 2.5 MG TABLET PO SCH (09:35)
[2020-05-01] MEDS: LOSARTAN POTASSIUM 50 MG TABLET (FP) PO SCH (09:35)
[2020-05-01] MEDS: amLODIPine BESYLATE 10 MG TABLET (FP) PO SCH (09:35)
[2020-05-01] MEDS: CHOLECALCIFEROL (VIT D3) 1,000 UNIT (25 MCG) TABLET PO SCH (09:35)
[2020-05-01 14:43] VITALS: BP 126/83; PULSE 62; TEMP 98.6
--- NOTE | 2020-05-01 15:34 | PN ---
Teaching Attending Note Name of Resident: Maged Layton ATTENDING PHYSICIAN STATEMENT I saw and evaluated the patient. I reviewed the resident's note and discussed the case with the resident. I agree with the resident's findings and plan as documented. SUBJECTIVE: L sided CP improving with Tramadol. No SOB/cough/sputum/hemoptysis/fever/chills. OBJECTIVE: Afebrile, Hemodynamically Stable. Last Vital Signs Temp Pulse Resp BP Pulse Ox 98.6 F 62 20 126/83 95 05/01/20 14:42 05/01/20 14:42 05/01/20 14:42 05/01/20 14:42 05/01/20 14:42 Heart - S1, S2, RRR Lungs - clear to auscultation Abdomen - Soft, non-tender. High BMI. Bowel Sounds normal. Extremities - LLE edema/venous stasis skin changes (chronic secondary to prior DVT), no calf tenderness Neuro - AAO x 3. Mild L sided weakness/spasticity (chronic) Laboratory Results - last 24 hr 05/01/20 05/01/20 08:00 08:00 WBC 6.5 RBC 3.85 L Hgb 12.2 Hct 37.5 MCV 97.3 H MCH 31.7 MCHC 32.6 RDW 15.5 Plt Count 183 D MPV 8.5 Sodium 139 Potassium 3.8 Chloride 104 Carbon Dioxide 23 Anion Gap 12 BUN 16.6 Creatinine 1.3 Est GFR (CKD-EPI)AfAm 68.25 Est GFR (CKD-EPI)NonAf 58.89 Random Glucose 84 Calcium 9.0 Phosphorus 3.9 Magnesium 1.9 Current Medications Generic Name Dose Route Start Last Admin Trade Name Onelq PRN Reason Stop Dose Admin Acetaminophen 650 mg 04/29/20 05:28 04/30/20 06:25 Tylenol - PO 650 mg Q6H PRN Administration PAIN LEVEL 4-6 Amlodipine Besylate 10 mg 04/30/20 10:00 05/01/20 09:35 Norvasc - PO 10 mg DAILY [place] Administration Apixaban 2.5 mg 04/29/20 10:00 05/01/20 09:35 Eliquis - PO 2.5 mg BID [place] Administration Atorvastatin Calcium 10 mg 04/30/20 22:00 04/30/20 22:40 Lipitor - PO 10 mg HS [place] Administration Cholecalciferol 2,000 unit 04/30/20 16:00 05/01/20 09:35 Vitamin D3 - PO 2,000 unit DAILY [place] Administration Furosemide 40 mg 05/01/20 06:00 05/01/20 05:31 Lasix - PO 40 mg DAILY@0600 [place] Administration Losartan Potassium 100 mg 04/30/20 16:00 05/01/20 09:35 Cozaar - PO 100 mg DAILY [place] Administration Metoprolol Tartrate 100 mg 04/30/20 22:00 05/01/20 09:35 Lopressor - PO 100 mg BID [place] Administration Tramadol HCl 50 mg 04/30/20 10:37 05/01/20 09:34 Ultram - PO 50 mg Q6H PRN Administration PAIN LEVEL 7-10 Home Medications Medication Instructions Recorded Amlodipine Besylate 10 mg PO DAILY 07/22/17 Furosemide [Lasix] 40 mg PO DAILY 07/22/17 Losartan Potassium 100 mg PO DAILY 07/22/17 Metoprolol Tartrate 100 mg PO BID 07/22/17 Pravastatin Sodium 40 mg PO HS 07/22/17 Apixaban [Eliquis] 2.5 mg PO BID #1 tablet 08/18/17 traMADol HCL [Ultram -] 50 mg PO Q6H PRN tablet 05/01/20 ASSESSMENT/PLAN: 59 year old male with 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 1. Acute 8th Rib Fracture CXR - Acute fracture of L 8th rib along posterior axillary line, mildly displaced; no gross pneumothorax or pleural fluid present Incentive Spirometry PT evaluated - ambulatory dysfunction recommendation for SNF/Rehab. Medically clear for discharge to SNF/Rehab. 2. Hx of DVT s/p IVC filter Continue Eliquis - discussed with PCP who confirms home 2.5mg BID dosing. 3. HTN - Continue Losartan, Metoprolol, Amlodipine. 4. HLD - continue Pravastatin 5. Macrocytosis - B12/Folate levels normal. For Hematology referral on discharge 6. PAMELA on CKD 3 - resolved, Creat down to 1.3 from 1.7. Lasix and Losartan resumed. 7. Chronic Venous Stasis - Lasix resumed. DVT Px - on Eliquis. Dispo - awaiting authorization for SNF/Rehab.
--- NOTE | 2020-05-01 16:13 | DS ---
Physical Exam: SUBJECTIVE: Patient seen and examined at bedside. The patient has no acute overnight events. Patient is waiting to be transported to [facility] pending insurance authorization through social work. OBJECTIVE: Vital Signs Period Temp Pulse Resp BP Sys/Posey Pulse Ox Last 24 Hr 98.1 F-98.7 F 62-82 18-20 125-139/80-87 95-97 PHYSICAL EXAM GENERAL: The patient is awake, alert, and fully oriented, in no acute distress. HEAD: Normal with no signs of trauma. EYES: PERRL, extraocular movements intact, sclera anicteric, conjunctiva clear. ENT: Ears normal, nares patent, oropharynx clear without exudates, moist mucous membranes. NECK: Trachea midline, full range of motion, supple. LUNGS: Breath sounds equal, clear to auscultation bilaterally, no wheezes, no crackles, no accessory muscle use. HEART: Regular rate and rhythm, S1, S2 without murmur, rub or gallop. ABDOMEN: Soft, nontender, nondistended, normoactive bowel sounds, no guarding, no rebound, no hepatosplenomegaly, no masses. EXTREMITIES: 2+ pulses, warm, well-perfused, no edema. NEUROLOGICAL: Cranial nerves II through XII grossly intact. Normal speech, gait not observed. PSYCH: Normal mood, normal affect. SKIN: Warm, dry, normal turgor, no rashes or lesions noted. 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 The patient reported falling on his side on and admitted to excruciating rib pain on tuesday night prompting him to arrive to the ED the following tuesday. The patient was admitted with intractable pain due to L 8th rib fracture along posterior axillary line without pleuritic involvement. The patient was advised to use incentive spirometry and was evaluated with PT. PT suggests transfer to SNF due to difficulty ambulating and living at home alone. The patient was admitted to med/surg for observation of his elevate cr levels and pain management with tramadol. The patient's lasix and losartan were held and kidney function levels resolved. The patient was approved for transfer to [facility] and will be transferred today. Date of Discharge: 05/01/20 Minutes to complete discharge: 40 Discharge Summary Problems reviewed: Yes Reason For Visit: FRACTURE OF RIB Current Active Problems Morbid obesity with BMI of 40.0-44.9, adult (Chronic) Stasis dermatitis of left lower extremity due to peripheral venous hypertension (Chronic) Weakness of left side of body (Chronic) Condition: Stable - Instructions Diet, Activity, Other Instructions: YOUR VISIT: You were admitted to the hospital because of left rib pain after a fall. While you were here you were evaluated with lab work, blood work, chest x-ray, and rib X-ray. Your imaging revealed that you had broken your 8th rib. There were no injuries to your lungs. You were given an incentive spirometer that allowed us to monitor your lung function after your broken rib. You were also seen by physical therapy that determined that you would benefit from continued physical therapy at a Long Term Facility. Labwork showed some kidney impairment, which improved after intravenous hydration. MEDICATIONS: Please START taking Tramadol 50 mg as needed for pain/spasm Please continue taking all of your medications as prescribed FOLLOW UP: Please follow up with your primary care provider Dr. Hernandez within 1-2 weeks to discuss your hospitalization Please follow up with Hematology, Dr. Jeong in 2 weeks for evaluation of Macrocytosis ADDITIONAL INFORMATION: You are being discharged to [facility] Please return to the emergency department if you are experiencing any chest pain, sudden shortness of breath, radiating chest pressure, worsening or concerning symptoms. Referrals: Susy Sanchez MD [Staff Physician] - 2 Weeks (macrocytosis) Medhat Hernandez MD [Primary Care Provider] - 1 Week Disposition: ASSISTED FACILITY - Home Medications Comprehensive Discharge Medication List: Ambulatory Orders Amlodipine Besylate 10 mg PO DAILY 07/22/17 Furosemide [Lasix] 40 mg PO DAILY 07/22/17 Losartan Potassium 100 mg PO DAILY 07/22/17 Metoprolol Tartrate 100 mg PO BID 07/22/17 Pravastatin Sodium 40 mg PO HS 07/22/17 Apixaban [Eliquis] 2.5 mg PO BID #1 tablet 08/18/17 traMADol HCL [Ultram -] 50 mg PO Q6H PRN tablet 05/01/20 - Discharge Referral Referred to [facility] Med [facility] No ATTENDING PHYSICIAN STATEMENT I saw and evaluated the patient. I reviewed the resident's note and discussed the case with the resident. I agree with the resident's findings and plan as documented. SUBJECTIVE: OBJECTIVE: ASSESSMENT AND PLAN:
== END 2020-05-01 20:47 | DRG 206 ==
LOC: SUPCPDRO 16:17 → JER 16:17 → INTOOBSV 21:56 → OBSVTOIN 21:56 → JERBED 21:56 → J6S 04-29 15:44
PROVIDERS: ADMIT Internal Medicine
DX: S22.32XA Fracture of one rib, left side, initial encounter for closed fracture (principal); Z68.41 Body mass index [BMI] 40.0-44.9, adult; N17.9 Acute kidney failure, unspecified; I69.354 Hemiplegia and hemiparesis following cerebral infarction affecting left non-dominant side; E66.01 Morbid (severe) obesity due to excess calories; E78.5 Hyperlipidemia, unspecified; I12.9 Hypertensive chronic kidney disease with stage 1 through stage 4 chronic kidney disease, or unspecified chronic kidney disease; N18.3 Chronic kidney disease, stage 3 (moderate); W19.XXXA Unspecified fall, initial encounter; Y93.9 Activity, unspecified; Y92.89 Other specified places as the place of occurrence of the external cause; Y99.9 Unspecified external cause status; D75.89 Other specified diseases of blood and blood-forming organs
CPT/HCPCS: 36415; 71045-TC-FY; 71101-TC-LT-FY; 80048; 80053; 82550; 82607; 82746; 83735; 84100; 85027; 93005; 93010; 97116-GP; 97162-GP; 99285-25; U0003